=== PATIENT | male | born 1985 | race Two or more races ===

== ENCOUNTER → 2020-04-09 12:59 | Outpatient (BNVA) | payer OTHER, SELFPAY | PROVIDERS: PCP Internal Medicine; Visit Provider Internal Medicine Endocrinology, Diabetes & Metabolism | DX: Z13.89 Encounter for screening for other disorder (principal) | CPT/HCPCS: Q3014 ==

== ENCOUNTER 2020-04-21 11:15 | Outpatient (REF) | payer OTHER, SELFPAY ==
[2020-04-21 12:42] LABS: Free T4 (Free Thyroxine) 0.92 ng/dL (0.71-1.85); Thyroid Stimulating Hormone 13.54 uIU/mL (0.32-4.0); Vitamin D 25-OH Total 33.9 ng/mL (>30)
== END 2020-04-21 11:16 | disposition home or self-care (01) ==
LOC: HO.LAB 11:15
PROVIDERS: PCP Internal Medicine; Visit Provider Internal Medicine Endocrinology, Diabetes & Metabolism
DX: E89.0 Postprocedural hypothyroidism (principal); E55.9 Vitamin D deficiency, unspecified
CPT/HCPCS: 36415; 82306; 84439; 84443

== ENCOUNTER 2021-04-20 14:00 | Outpatient (REF) | payer OTHER, SELFPAY ==
[2021-04-20 14:11] LABS: MANUAL DIFF FLAG NO
[2021-04-20 14:17] LABS: Basophils Percent Auto 0.5 % (0-2); Eosinophils Absolute Auto 0.5 X10*3/uL (0.0-0.4); Eosinophils Percent Auto 7.8 % (0-4); Hematocrit 44.9 % (42.0-52.0); Hemoglobin 15.3 g/dl (14.0-18.0); Imm Gran Abs Auto 0.01 X10*3/uL (0.00-0.03); Imm Gran Pct Auto 0.2 % (0.0-0.4); Lymphocytes Absolute Auto 1.6 X10*3/uL (1.2-4.9); Lymphocytes Percent Auto 26.6 % (20-40); Mean Corpuscular HGB Conc 34.1 g/dl (31.0-36.0); Mean Corpuscular Hemoglobin 30.8 pg (27.0-33.0); Mean Corpuscular Volume 90.3 fL (80.0-98.0); Mean Platelet Volume 9.1 fL (9.4-12.4); Monocytes Absolute Auto 0.3 X10*3/uL (0.1-1.2); Monocytes Percent Auto 4.6 % (2-11); Neutrophils Absolute Auto 3.6 x10*3/uL (2.0-8.3); Neutrophils Percent Auto 60.3 % (45-73); Platelet Count 268 X10*3/uL (160-400); Red Blood Count 4.97 X10*6/uL (4.60-5.80); Red Cell Distribution Width 13.9 % (11.0-16.0); White Blood Count 5.9 X10*3/uL (4.8-10.8)
[2021-04-20 14:50] LABS: Alanine Aminotransferase 16 U/L (0-40); Alkaline Phosphatase 84 U/L (39-117); Anion Gap 9 (12-20); Aspartate Amino Transferase 14 U/L (5-37); Bilirubin Total 0.5 mg/dL (0.0-1.0); Blood Urea Nitrogen 10 mg/dL (9-16); Calcium 8.9 mg/dL (8.4-10.2); Carbon Dioxide 30 mmol/L (22-29); Chloride 106 mmol/L (96-108); Cholesterol 289 mg/dL; Estimated Glomerular Filt Rate > 60; Glucose Fasting 92 mg/dL (60-99); HDL Cholesterol 30 mg/dL; LDL Cholesterol Calculated 221 mg/dl; Potassium 4.1 mmol/L (3.3-5.1); Sodium 141 mmol/L (135-145); Total Protein 6.3 g/dL (6.5-8.0); Triglycerides 194 mg/dL
[2021-04-20 15:01] LABS: Free T4 (Free Thyroxine) 0.84 ng/dL (0.71-1.85); Thyroid Stimulating Hormone 8.74 uIU/mL (0.32-4.0)
== END 2021-04-20 14:01 | disposition home or self-care (01) ==
LOC: HO.LAB 14:00
PROVIDERS: Absent Provider Internal Medicine; PCP Internal Medicine; Visit Provider Internal Medicine Endocrinology, Diabetes & Metabolism
DX: Z00.00 Encounter for general adult medical examination without abnormal findings (principal); Z13.0 Encounter for screening for diseases of the blood and blood-forming organs and certain disorders involving the immune mechanism; E89.0 Postprocedural hypothyroidism
CPT/HCPCS: 36415; 80053; 80061; 84439; 84443; 85025

== ENCOUNTER → 2021-04-27 13:54 | Outpatient (BNVA) | payer OTHER, SELFPAY | PROVIDERS: PCP Internal Medicine; Visit Provider Internal Medicine Endocrinology, Diabetes & Metabolism | DX: E89.0 Postprocedural hypothyroidism (principal) | CPT/HCPCS: 99212 ==

== ENCOUNTER 2021-06-29 08:03 | Emergency (ER) | payer OTHER, SELFPAY ==
--- NOTE | ~2021-06-29 | CT_ITS ---
EXAMINATION: CT ABDOMEN AND PELVIS WITHOUT CONTRAST CLINICAL INFORMATION: Right upper quadrant and right lower quadrant and right CVAT pain with nausea and vomiting. COMPARISON: None TECHNIQUE: Multidetector volumetric imaging was performed from the superior aspect of the liver through the pubic symphysis. Sagittal and coronal reformatted images were obtained on the technologist's workstation. This CT examination was performed using dose optimization techniques as appropriate, variously including the following: *Automated exposure control *Adjustment of mA and/or kV according to patient size (this includes techniques or standardized protocols for targeted exams where dose is matched to indication/reason for exam; i.e. extremities or head) *Use of iterative reconstruction technique DLP: 343 mGy-cm FINDINGS: LUNG BASES: The visualized lung bases are unremarkable. LIVER, GALLBLADDER, AND BILIARY TREE: The liver is normal in size, shape, and attenuation. There is a 2.6 cm cyst seen at the dome of the liver. No focal solid hepatic lesion or biliary ductal dilatation is present. The gallbladder is unremarkable with no evidence of radiopaque gallstones, gallbladder wall thickening, or obvious pericholecystic inflammatory changes. PANCREAS: Unremarkable. No peripancreatic inflammatory change. SPLEEN: Unremarkable. ADRENAL GLANDS: Right adrenal gland appears unremarkable. The left adrenal gland is noted to have a lipid rich 1.2 cm nodule. KIDNEYS AND URETERS: The left kidney is normal in size, shape, and attenuation. No hydronephrosis, hydroureter, or calculi seen. No perinephric stranding. There is mild fullness to the right upper collecting system. Within the distal third of the right ureter there is a 4 mm partially obstructing calculus. There is columnization of the right ureter down to the calculus. BLADDER: Unremarkable. GASTROINTESTINAL TRACT: No dilated loops of large or small bowel are evident. A ventriculoperitoneal shunt is seen in place with small amount of free fluid within the pelvis. No free air is identified. The appendix appears unremarkable. No pericolonic inflammatory change. ABDOMINAL WALL: No significant hernia is appreciated. Ventriculoperitoneal shunt in place. LYMPH NODES: Normal. VASCULAR: Unremarkable. PELVIC VISCERA: Unremarkable. OSSEOUS STRUCTURES: Unremarkable. CT/CT abdomen pelvis wo con IMPRESSION: Partially occluding 4 mm distal right ureteral calculus with mild right hydronephrosis. 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 Hepatic cyst. Fleischner guidelines were followed.
[2021-06-29 08:15] VITALS: BP 148/91; PULSE 94; RESP 18; TEMP 36.8; O2SAT 99; BMI 24.5
[2021-06-29 08:27] LABS: MANUAL DIFF FLAG NO
[2021-06-29 08:30] LABS: Basophils Percent Auto 0.5 % (0-2); Eosinophils Percent Auto 13.1 % (0-4); Hematocrit 43.3 % (42.0-52.0); Hemoglobin 15.2 g/dl (14.0-18.0); Imm Gran Abs Auto 0.02 X10*3/uL (0.00-0.03); Imm Gran Pct Auto 0.3 % (0.0-0.4); Lymphocytes Absolute Auto 2.5 X10*3/uL (1.2-4.9); Lymphocytes Percent Auto 33.1 % (20-40); Mean Corpuscular HGB Conc 35.1 g/dl (31.0-36.0); Mean Corpuscular Hemoglobin 30.4 pg (27.0-33.0); Mean Corpuscular Volume 86.6 fL (80.0-98.0); Mean Platelet Volume 9.8 fL (9.4-12.4); Monocytes Absolute Auto 0.4 X10*3/uL (0.1-1.2); Monocytes Percent Auto 5.8 % (2-11); Neutrophils Absolute Auto 3.5 x10*3/uL (2.0-8.3); Neutrophils Percent Auto 47.2 % (45-73); Platelet Count 320 X10*3/uL (160-400); Red Cell Distribution Width 12.1 % (11.0-16.0); White Blood Count 7.5 X10*3/uL (4.8-10.8)
[2021-06-29 08:50] LABS: Alanine Aminotransferase 28 U/L (0-40); Albumin Level 4.2 g/dL (3.5-5.0); Alkaline Phosphatase 75 U/L (39-117); Anion Gap 14 (12-20); Aspartate Amino Transferase 17 U/L (5-37); Bilirubin Total 0.6 mg/dL (0.0-1.0); Blood Urea Nitrogen 7 mg/dL (9-16); Calcium 9.4 mg/dL (8.4-10.2); Carbon Dioxide 23 mmol/L (22-29); Chloride 108 mmol/L (96-108); Creatinine Clr Calc Pharmacy 79.5; Estimated Glomerular Filt Rate > 60; Glucose Random 125 mg/dL (60-115); Lipase 43 U/L (8-78); Potassium 3.9 mmol/L (3.3-5.1); Sodium 141 mmol/L (135-145); Total Protein 6.6 g/dL (6.5-8.0)
--- NOTE | 2021-06-29 09:35 | ED.ABDPAIN ---
HPI - Abdominal Pain General Chief Complaint: Abdominal Pain Stated Complaint: stomach pain Time Seen by Provider: 06/29/21 09:30 Source: patient Mode of arrival: ambulatory History of Present Illness HPI narrative: 36-year-old male with a past medical history of brain tumor s/p excision, total thyroidectomy, vitamin-D deficiency, presenting to the ED complaining of right lower quadrant pain, nausea, vomiting, diarrhea since yesterday. Admits pain initially started on left side then migrated to the right. Denies fever, chills, dysuria, hematuria, frequency, suspicious food intake MD elicited complaint: abdominal pain Onset (ago): day(s) Related Data Previous Rx's Medication Instructions Recorded cholecalciferol (vitamin D3) 25 25 mcg PO DAILY 30 Days #30 cap 04/19/21 mcg (1,000 unit) capsule Levoxyl 125 mcg tablet 125 mcg PO DAILY 30 Days #30 tab NS 04/22/21 (levothyroxine) ketorolac 10 mg tablet 10 mg PO TID PRN 5 Days #15 tab 06/29/21 tamsulosin 0.4 mg capsule (Flomax) 0.4 mg PO DAILY #14 cap 06/29/21 Allergies Allergy/AdvReac Type Severity Reaction Status Date / Time No Known Allergies Allergy Verified 06/03/21 14:39 Review of Systems Review of Systems Constitutional: No Fever, No Chills, No Fatigue, No Malaise ENT/Mouth: No Hearing loss, No Ear Pain, No Nasal Congestion, No sore throat, No Rhinorrhea, No Swallowing Difficulty Eyes: No Eye Pain, No Swelling, No Redness, No Vision Changes Cardiovascular: No Chest Pain, No SOB, No Edema, No Palpitations Respiratory: No Cough, No Sputum, No Dyspnea Gastrointestinal: + Nausea, + Vomiting, + Diarrhea, No Constipation, + Abdominal pain Genitourinary: No Dysuria, No Urinary Frequency, No Hematuria, No Urinary Incontinence/retention, No Urgency, + Flank Pain Musculoskeletal: No joint pain, No Myalgias, No Joint Swelling Skin: No Skin Lesions, No rash Neuro: No Weakness, No Dizziness, No Headache Yes all other systems are reviewed and are negative PMFSH Past Medical History Attestation statement: The following information was validated with the patient. Medical History History of brain tumor Post-surgical hypothyroidism Vitamin D deficiency Surgical History Hx of excision of tumor of brain meninges Hx of total thyroidectomy Family History Family History Father No problems noted. Mother No problems noted. Maternal Grandmother Diabetes mellitus Social History Social History Housing: Apartment Alcohol intake: current Alcohol intake frequency: does not drink Patient Tobacco Use Status: Former Tobacco user Quit Date: Over 5 years ago Cigarette Packs Per Day: 4 Years Smoked: 4 e-Cigarette/Vaping Use: Never Used Second Hand Smoke Exposure: No Use of substances other than those prescribed or required for medical reasons: No Advance Directives: No Advance Directives Information Provided: No service: No Current occupational status: unemployed Current occupational exposures/hazards: No Cognitive needs: No Hearing needs: No Vision needs: Yes Physical Exam ED Vital Signs: Vital Signs - 24 hr 06/29/21 08:15 06/29/21 10:03 06/29/21 14:19 Temperature 98.2 F Pulse Rate 94 87 68 Respiratory Rate 18 20 16 Blood Pressure 148/91 H 127/95 H 111/74 Pulse Oximetry 99 100 BMI result Body Mass Index 24.5 Const General: cooperative, healthy appearing and no acute distress Orientation/consciousness: patient oriented x3 Limitations: no limitations HENMT Head: Yes normal to inspection and Yes atraumatic Ears: hearing grossly normal bilaterally General nose exam: Normal external nose present Face and sinus: Yes normal facial exam Eyes General: appearance normal, both eyes and all related structures EOM: EOMs intact bilaterally Neck Neck: Yes normal visual inspection and Yes no meningeal signs Resp Effort & Inspection: normal respiratory effort and no respiratory distress Auscultation: clear to auscultation bilaterally, no rales, no rhonchi and no wheezes Cardio Rate: regular rate Heart sounds: S1 normal heart sound present and S2 normal heart sound present GI Inspection: Yes normal to inspection Palpation (GI): Soft to palpation, Tenderness to palpation present (GI) in the RLQ and in the RUQ, no guarding and not rigid General: Yes CVA tenderness on the right Back/Spine/Pelvis Back: CVA tenderness Skin Rashes: no rashes Wounds: no wounds Neuro General: patient oriented x3, tone normal and no meningeal signs Gait exam (Neuro): Normal gait present Extrem General: Yes normal to inspection Course Course Course Narrative: -no leukocytosis. Labs otherwise unremarkable CT abdomen pelvis wo con IMPRESSION: Partially occluding 4 mm distal right ureteral calculus with mild right hydronephrosis. ? 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 ? Hepatic cyst. ? Fleischner guidelines were followed. >1233--on re-evaluation patient reports continued pain. UA pending. Will consult Urology -urology recommends hydration and p.o. challenge > patient has been tolerating p.o. in the ED with out nausea or vomiting. UA with RBC/not infected. Results discussed with patient including worrisome signs and symptoms and strict return precautions and needing close follow-up with Urology. Verbalized understanding and feel safe for discharge home MDM - Abdominal Pain MDM Narrative Medical decision making narrative: 36-year-old male with a past medical history of brain tumor s/p excision, total thyroidectomy, vitamin-D deficiency, presenting to the ED complaining of right lower quadrant pain, nausea, vomiting, diarrhea since yesterday. On exam vital signs stable, NAD, nontoxic appearance, abdomen soft with RUQ/RLQ and right CVA tenderness, no rebound or guarding. Concern for cholecystitis/lithiasis vs renal stones/pyelo vs appendicitis. Lower concern for diverticulitis. Plan: Labs, UA, CT AP, IVF, antiemetic, re-evaluate Differential Diagnosis Differential diagnosis: Likely abdominal pain, acute appendicitis, constipation, diverticulitis, gastroenteritis, gastritis and pancreatitis Medical Records Attestation: I reviewed the patient's medical records. Lab Data Attestation: I reviewed the patient's lab results. Result diagrams: 06/29/21 08:23 06/29/21 08:23 Labs: Lab Results 06/29/21 06/29/21 06/29/21 Range/Units 08:23 08:23 14:15 WBC 7.5 (4.8-10.8) X10*3/uL RBC 5.00 (4.60-5.80) X10*6/uL Hgb 15.2 (14.0-18.0) g/dl Hct 43.3 (42.0-52.0) % MCV 86.6 (80.0-98.0) fL MCH 30.4 (27.0-33.0) pg MCHC 35.1 (31.0-36.0) g/dl RDW 12.1 (11.0-16.0) % Plt Count 320 (160-400) X10*3/uL MPV 9.8 (9.4-12.4) fL Immature Gran % (Auto) 0.3 (0.0-0.4) % Neut % (Auto) 47.2 (45-73) % Lymph % (Auto) 33.1 (20-40) % [place] % (Auto) 5.8 (2-11) % Eos % (Auto) 13.1 H (0-4) % Baso % (Auto) 0.5 (0-2) % Lymph # (Auto) 2.5 (1.2-4.9) X10*3/uL [place] # (Auto) 0.4 (0.1-1.2) X10*3/uL Eos # (Auto) 1.0 H (0.0-0.4) X10*3/uL Baso # (Auto) 0.0 (0.0-0.2) X10*3/uL Abs Immat Gran (auto) 0.02 (0.00-0.03) X10*3/uL Absolute Neuts (auto) 3.5 (2.0-8.3) x10*3/uL Absolute Nucleated RBC 0.000 (0.0-0.012) X10*3/uL Nucleated RBC % (auto) 0.0 (0.0-0.2) /100WBC Sodium 141 (135-145) mmol/L Potassium 3.9 (3.3-5.1) mmol/L Chloride 108 (96-108) mmol/L Carbon Dioxide 23 (22-29) mmol/L Anion Gap 14 (12-20) BUN 7 L (9-16) mg/dL Creatinine 0.94 (0.5-1.4) mg/dL Estim Creat Clear Calc 79.5 Estimated GFR > 60 Random Glucose 125 H (60-115) mg/dL Calcium 9.4 (8.4-10.2) mg/dL Magnesium 1.9 (1.6-2.6) mg/dL Total Bilirubin 0.6 (0.0-1.0) mg/dL AST 17 (5-37) U/L ALT 28 (0-40) U/L Alkaline Phosphatase 75 (39-117) U/L Total Protein 6.6 (6.5-8.0) g/dL Albumin 4.2 (3.5-5.0) g/dL Lipase 43 (8-78) U/L Urine Color STRAW Urine Appearance HAZY Urine pH 7.0 (5.0-8.0) Ur Specific [place] <= 1.005 (1.005-1.025) Urine Protein NEG (NEG-TRACE) MG/DL Urine Glucose (UA) NEG (NEG) MG/DL Urine Ketones NEG (NEG) MG/DL Urine Blood 3+ H (NEG) Urine Nitrite NEG (NEG) Ur Leukocyte Esterase NEG (NEG) Urine RBC 10-14 H (0) /HPF Urine WBC 0 (0-4) /HPF Ur Squamous Epith Cells NONE /LPF Ur Renal Epithelial Cell TRACE /LPF Urine Bacteria NONE /LPF Discharge Plan Discharge Clinical Impression: Right ureteral stone Patient Disposition: Home, Self-Care Instructions: Ureteral Stones (ED) Additional Instructions: Your kidney stone that is partially obstructing in your right ureter. It is important that you stay hydrated at home, drink plenty of fluids. Toradol is a anti-inflammatory pain medication, take with food. Flomax will help dilate the ureter and help pass the stone. You need to follow-up with Urology. If symptoms persist or worsen, constant worsening abdominal pain, persistent nausea/vomiting, you are unable to urinate or develops fever please return to the ED Prescriptions: New ketorolac 10 mg tablet 10 mg PO TID PRN (Reason: pain) 5 Days Qty: 15 0RF tamsulosin [Flomax] 0.4 mg capsule 0.4 mg PO DAILY Qty: 14 0RF No Action levothyroxine [Levoxyl] 125 mcg tablet 125 mcg PO DAILY 30 Days Qty: 30 5RF cholecalciferol (vitamin D3) 25 mcg (1,000 unit) capsule 25 mcg PO DAILY 30 Days Qty: 30 12RF Referrals: Anjel Cordova MD [Physician] - 1 week
[2021-06-29] MEDS: Ketorolac Tromethamine 15 MG/ML VIAL IVPUSH ×2 (10:01→13:12)
[2021-06-29] MEDS: 0.9 % Sodium Chloride 1,000 ML 999 ML IV ×2 (10:01→13:28)
[2021-06-29 10:02] LABS: Magnesium 1.9 mg/dL (1.6-2.6)
[2021-06-29] MEDS: ondansetron HCL 4 MG/2 ML VIAL IVPUSH (10:02)
[2021-06-29 10:03] VITALS: BP 127/95; PULSE 87; RESP 20
--- NOTE | 2021-06-29 10:04 | PC.NURSE ---
Pt c/o right sided abd pain x 3 days with vomiting. Pt grimacing and restless on stretcher. IV established and medicated as charted. Skin pale, warm and dry. Awaits CT scan
[2021-06-29] MEDS: Tamsulosin HCL 0.4 MG CAPSULE PO (13:13)
[2021-06-29 14:19] VITALS: BP 111/74; PULSE 68; RESP 16; O2SAT 100
[2021-06-29 14:36] LABS: Appearance Urine HAZY; Color Urine STRAW; Glucose Urine UA NEG (NEG); Leukocyte Esterase Urine NEG (NEG); Nitrite Urine NEG (NEG); Specific Gravity - Urine <= 1.005 (1.005-1.025); UACC Culture Trigger NO; Urine Blood 3+ (NEG); Urine Ketones NEG (NEG); Urine Protein NEG (NEG-TRACE)
[2021-06-29 14:43] LABS: Renal Epithelial Cells Urine TRACE /LPF
[2021-06-29 14:44] LABS: WBC Urine 0 /HPF (0-4)
== END 2021-06-29 15:03 | disposition home or self-care (01) ==
PROVIDERS: Physician Assistant; Emergency Provider Emergency Medicine; PCP Internal Medicine
DX: N13.2 Hydronephrosis with renal and ureteral calculous obstruction (principal)
CPT/HCPCS: 36415; 74176; 80053; 81001; 83690; 83735; 85025; 96361; 96374; 96375; 96376; 99284; J1885; J2405

== ENCOUNTER 2021-08-17 14:33 | Outpatient (REF) | payer OTHER, SELFPAY ==
[2021-08-17 15:20] LABS: Cholesterol 259 mg/dL; HDL Cholesterol 39 mg/dL; LDL Cholesterol Calculated 169 mg/dl; Triglycerides 255 mg/dL
[2021-08-17 17:51] LABS: Thyroid Stimulating Hormone 0.03 uIU/mL (0.32-4.0)
== END 2021-08-17 14:34 | disposition home or self-care (01) ==
LOC: HO.LAB 14:33
PROVIDERS: PCP Internal Medicine; Visit Provider Internal Medicine
DX: E03.9 Hypothyroidism, unspecified (principal); E78.5 Hyperlipidemia, unspecified
CPT/HCPCS: 36415; 80061; 84443

== ENCOUNTER 2021-10-21 14:47 | Outpatient (REF) | payer OTHER, SELFPAY ==
[2021-10-21 16:22] LABS: Free T4 (Free Thyroxine) 1.62 ng/dL (0.71-1.85); Thyroid Stimulating Hormone 0.14 uIU/mL (0.32-4.0)
== END 2021-10-21 14:48 | disposition home or self-care (01) ==
LOC: HO.LAB 14:47
PROVIDERS: Visit Provider Internal Medicine Endocrinology, Diabetes & Metabolism
DX: E89.0 Postprocedural hypothyroidism (principal)
CPT/HCPCS: 36415; 84439; 84443

== ENCOUNTER → 2021-10-27 10:22 | Outpatient (BNVA) | payer OTHER, SELFPAY | PROVIDERS: PCP Internal Medicine; Visit Provider Internal Medicine Endocrinology, Diabetes & Metabolism | DX: E89.0 Postprocedural hypothyroidism (principal) | CPT/HCPCS: 99212 ==

== ENCOUNTER 2021-11-15 14:11 | Outpatient (REF) | payer OTHER, SELFPAY ==
--- NOTE | ~2021-11-15 | XR_ITS ---
EXAMINATION: XR LUMBOSACRAL SPINE CLINICAL INFORMATION: Low back pain COMPARISON: None TECHNIQUE: Three views of the lumbosacral spine. FINDINGS: 5 nonrib-bearing lumbar vertebral bodies. Sagittal alignment is anatomic. Vertebral body heights are maintained. No acute fracture is seen. There is mild endplate spurring anteriorly at T12-L1, and anterior spurring at L2 vertebral body. The disc spaces are maintained. SI joints are intact. Visualized pelvic bones appear intact. Nonobstructive bowel gas pattern. WAIST PRESSER shunt, partially imaged, with the tip apparently in the pelvis. Previously seen right ureteral calculus is not evident on the radiograph. XR/XR lumbar spine 2-3V IMPRESSION: No radiographic evidence of acute fracture or malalignment. Mild degenerative spurring as detailed above. Additional findings as above.
== END 2021-11-15 14:12 | disposition home or self-care (01) ==
LOC: HO.XRAY 14:11
PROVIDERS: PCP Internal Medicine; Visit Provider Internal Medicine
DX: M54.50 Low back pain, unspecified (principal)
CPT/HCPCS: 72100

== ENCOUNTER 2022-03-28 13:17 | Outpatient (REF) | payer OTHER, SELFPAY ==
[2022-03-28 15:28] LABS: Free T4 (Free Thyroxine) 1.32 ng/dL (0.71-1.85); Thyroid Stimulating Hormone 0.71 uIU/mL (0.32-4.0)
== END 2022-03-28 13:18 | disposition home or self-care (01) ==
LOC: HO.LAB 13:17
PROVIDERS: PCP Internal Medicine; Visit Provider Internal Medicine Endocrinology, Diabetes & Metabolism
DX: E89.0 Postprocedural hypothyroidism (principal)
CPT/HCPCS: 36415; 84439; 84443

== ENCOUNTER → 2022-03-29 13:45 | Outpatient (BNVA) | payer OTHER, SELFPAY | PROVIDERS: PCP Internal Medicine; Visit Provider Internal Medicine Endocrinology, Diabetes & Metabolism | DX: E89.0 Postprocedural hypothyroidism (principal) | CPT/HCPCS: 99212 ==

== ENCOUNTER 2022-05-05 13:54 | Outpatient (REF) | payer OTHER, SELFPAY ==
[2022-05-05 14:10] LABS: MANUAL DIFF FLAG NO
[2022-05-05 14:47] LABS: Basophils Absolute Auto 0.1 X10*3/uL (0.0-0.2); Basophils Percent Auto 1.2 % (0-2); Eosinophils Absolute Auto 0.2 X10*3/uL (0.0-0.4); Eosinophils Percent Auto 2.7 % (0-4); Hematocrit 44.7 % (42.0-52.0); Hemoglobin 15.3 g/dl (14.0-18.0); Imm Gran Abs Auto 0.01 X10*3/uL (0.00-0.03); Imm Gran Pct Auto 0.2 % (0.0-0.4); Lymphocytes Absolute Auto 1.7 X10*3/uL (1.2-4.9); Lymphocytes Percent Auto 27.6 % (20-40); Mean Corpuscular HGB Conc 34.2 g/dl (31.0-36.0); Mean Corpuscular Hemoglobin 29.5 pg (27.0-33.0); Mean Corpuscular Volume 86.1 fL (80.0-98.0); Mean Platelet Volume 9.4 fL (9.4-12.4); Monocytes Absolute Auto 0.3 X10*3/uL (0.1-1.2); Neutrophils Absolute Auto 3.8 x10*3/uL (2.0-8.3); Neutrophils Percent Auto 63.3 % (45-73); Platelet Count 302 X10*3/uL (160-400); Red Blood Count 5.19 X10*6/uL (4.60-5.80); Red Cell Distribution Width 13.3 % (11.0-16.0)
[2022-05-05 16:26] LABS: Alanine Aminotransferase 12 U/L (0-40); Albumin Level 4.3 g/dL (3.5-5.0); Alkaline Phosphatase 82 U/L (39-117); Anion Gap 16 (12-20); Aspartate Amino Transferase 10 U/L (5-37); Bilirubin Total 0.6 mg/dL (0.0-1.0); Blood Urea Nitrogen 6 mg/dL (9-16); Calcium 9.5 mg/dL (8.4-10.2); Carbon Dioxide 26 mmol/L (22-29); Chloride 103 mmol/L (96-108); Cholesterol 287 mg/dL; Estimated Glomerular Filt Rate > 60; Glucose Fasting 71 mg/dL (60-99); HDL Cholesterol 40 mg/dL; LDL Cholesterol Calculated 206 mg/dl; Potassium 4.7 mmol/L (3.3-5.1); Sodium 140 mmol/L (135-145); Total Protein 6.7 g/dL (6.5-8.0); Triglycerides 207 mg/dL
[2022-05-05 16:45] LABS: Thyroid Stimulating Hormone 4.57 uIU/mL (0.32-4.0)
== END 2022-05-05 13:55 | disposition home or self-care (01) ==
LOC: HO.LAB 13:54
PROVIDERS: PCP Internal Medicine; Visit Provider Internal Medicine
DX: D64.9 Anemia, unspecified (principal); E03.9 Hypothyroidism, unspecified; E78.5 Hyperlipidemia, unspecified; N28.9 Disorder of kidney and ureter, unspecified
CPT/HCPCS: 36415; 80053; 80061; 84443; 85025

== ENCOUNTER 2022-10-04 14:05 | Emergency (ER) | payer OTHER, SELFPAY ==
--- NOTE | ~2022-10-04 | CT_ITS ---
EXAMINATION: CT HEAD WITHOUT CONTRAST CLINICAL INFORMATION: Weakness. COMPARISON: MRI of the brain dated 09/15/[address] scan of the brain dated 12/17/2009. TECHNIQUE: Contiguous axial imaging was performed from the skull base to vertex without intravenous administration of contrast. Coronal and sagittal reformatted images were obtained. This CT examination was performed using dose optimization techniques as appropriate, variously including the following: *Automated exposure control *Adjustment of mA and/or kV according to patient size (this includes techniques or standardized protocols for targeted exams where dose is matched to indication/reason for exam; i.e. extremities or head) *Use of iterative reconstruction technique DLP: 504 mGy-cm FINDINGS: The cortical sulci are normal. The lateral ventricles are symmetrical. Right parietal approach catheter is seen in place terminating overlying the left lateral ventricle without significant change. The third and fourth ventricles are in their normal midline position. The basilar and prepontine cisterns are unremarkable. There is no acute intra or extracerebral abnormality. There is no mass effect or midline shift. Sections through the bony calvarium are unremarkable. The paranasal sinuses are clear. The bony orbits and orbital contents are unremarkable. CT/CT head/brain wo IV con IMPRESSION: No acute intracranial pathology.
--- NOTE | 2022-10-04 14:08 | ED_ITS ---
HPI - General Adult General Chief complaint: General Medical Stated complaint: whole body hurts Time Seen by Provider: 10/04/22 14:27 Source: patient and family Mode of arrival: ambulatory Limitations: no limitations History of Present Illness HPI narrative: patient with whole body numbness and some headache. Patient with a shunt since 7 years old. patient does not have a neurologist. Initially patient had num bness on the right now its the entire body. No weakness. Onset (ago): day(s) Severity: mild Related Data Previous Rx's Medication Instructions Recorded cholecalciferol (vitamin D3) 25 25 mcg PO DAILY 30 days #30 caps 04/19/21 mcg (1,000 unit) capsule naproxen 500 mg tablet (Naprosyn) 500 mg PO BID PRN pain #60 tabs 11/15/21 Levoxyl 112 mcg tablet 112 mcg PO DAILY #30 tabs 08/28/22 (levothyroxine) Allergies Allergy/AdvReac Type Severity Reaction Status Date / Time No Known Allergies Allergy Verified 10/04/22 14:08 Review of Systems Review of Systems: Yes all other systems are reviewed and are negative COUNT INCLUDES THE [facility] Past Medical History Medical History History of brain tumor Post-surgical hypothyroidism Vitamin D deficiency Surgical History Hx of excision of tumor of brain meninges Hx of total thyroidectomy Family History Family History Father No problems noted. Mother No problems noted. Maternal Grandmother Diabetes mellitus Social History Social History Housing: Apartment Alcohol intake: never Patient Tobacco Use Status: Former Tobacco user Quit Date: Over 5 years ago Cigarette Packs Per Day: 4 Years Smoked: 4 Smoked in Last 30 Days: Yes e-Cigarette/Vaping Use: Never Used Second Hand Smoke Exposure: No Use of substances other than those prescribed or required for medical reasons: Yes Substance Use Type: Marijuana Substance Use Frequency Other:: Hasn't used in a month Advance Directives: No service: No Current occupational status: unemployed Current occupational exposures/hazards: No Cognitive needs: No Hearing needs: No Vision needs: Yes Physical Exam ED Vital Signs: Vital Signs - 24 hr 10/04/22 14:09 10/04/22 16:27 Temperature 98 F Pulse Rate 76 63 Respiratory Rate 18 14 Blood Pressure 131/95 H 114/83 Pulse Oximetry 97 100 Oxygen Delivery Method Room Air BMI result Body Mass Index 23.5 Const General: healthy appearing Nutritional Appearance: average body habitus Orientation/consciousness: oriented to person and patient oriented x3 Limitations: no limitations HENMT Head: Yes normal to inspection Ears: external ears normal General nose exam: Normal external nose present Mouth: Normal oral and palatal mucosa present and oropharynx normal Throat: Yes posterior oropharynx normal Eyes General: appearance normal, both eyes and all related structures Neck Neck: Yes normal visual inspection Chest Chest palpation & inspection: normal inspection of the chest Resp Auscultation: clear to auscultation bilaterally Cardio Jugular venous distension: no JVD Rate: regular rate Rhythm: regular rhythm Heart sounds: S1 normal heart sound present and S2 normal heart sound present GI Inspection: Yes normal to inspection Palpation (GI): Soft to palpation, nontender and No hepatosplenomegaly present Auscultation: normal bowel sounds General: Yes no CVA tenderness Back/Spine/Pelvis Back: no CVA tenderness Skin General skin exam: no rashes or lesions noted Neuro General: oriented to person and patient oriented x3 Cranial nerves: Yes CN's II-XII intact bilaterally Motor exam (neuro): 5/5 motor strength present throughout Extrem General: Yes normal to inspection Psych Appearance: grossly normal Course Course Course Narrative: RME- 37 year old male with past medical history significant for previous brain tumor resection, peritoneal shunt, hypothyroidism presents for evaluation of numbness to my entire body. Symptoms started 3 or 4 days ago. He also reports generalized weakness. Patient reports double vision. NIH stroke score of 0, but does have some bilateral nystagmus on exam. Plan for labs, ct brain Reevaluation(s) Reevaluation #1: NIH stroke scale 0 Time: 16:09 Reevaluation #2: I assumed care at approximately 4:00 a.m. this afternoon. I reviewed patient's laboratory analysis and CT scan. There are no acute abnormalities. Patient has generalized myalgias. At this point, there is no evidence of a severe metabolic or surgical acute issue. Patient will be discharged at this time Time: 17:59 Medical Decision Making Differential Diagnosis Differential Diagnoses: The differential diagnosis associated with the presentation includes (hydrocephalus, brain tumor, stroke paraesthesias) Admission/Observation Consideration of admission/observation: Escalation of care including admission/observation considered (upon arrival patient was considered for admission) Lab Data MDM Lab Attestation statement: I reviewed the patient's lab results. (CBC normal, chemistry pending) 10/04/22 14:57 10/04/22 14:57 Labs: Lab Results 10/04/22 10/04/22 10/04/22 Range/Units 14:57 14:57 14:57 WBC 5.3 (4.8-10.8) X10*3/uL RBC 5.00 (4.60-5.80) X10*6/uL Hgb 15.4 (14.0-18.0) g/dl Hct 43.6 (42.0-52.0) % MCV 87.2 (80.0-98.0) fL MCH 30.8 (27.0-33.0) pg MCHC 35.3 (31.0-36.0) g/dl RDW 13.8 (11.0-16.0) % Plt Count 268 (160-400) X10*3/uL MPV 9.8 (9.4-12.4) fL Immature Gran % (Auto) 0.2 (0.0-0.4) % Neut % (Auto) 64.7 (45-73) % Lymph % (Auto) 25.9 (20-40) % [place] % (Auto) 4.9 (2-11) % Eos % (Auto) 3.0 (0-4) % Baso % (Auto) 1.3 (0-2) % Lymph # (Auto) 1.4 (1.2-4.9) X10*3/uL [place] # (Auto) 0.3 (0.1-1.2) X10*3/uL Eos # (Auto) 0.2 (0.0-0.4) X10*3/uL Baso # (Auto) 0.1 (0.0-0.2) X10*3/uL Abs Immat Gran (auto) 0.01 (0.00-0.03) X10*3/uL Absolute Neuts (auto) 3.4 (2.0-8.3) x10*3/uL Absolute Nucleated RBC 0.000 (0.0-0.012) X10*3/uL Nucleated RBC % (auto) 0.0 (0.0-0.2) /100WBC PT 11.8 (11.1-13.3) SEC INR 1.0 (0.9-1.1) APTT 29.3 (26.0-36.4) SEC Sodium 137 (135-145) mmol/L Potassium 3.5 D (3.3-5.1) mmol/L Chloride 104 (96-108) mmol/L Carbon Dioxide 24 (22-29) mmol/L Anion Gap 13 (12-20) BUN 7 L (9-16) mg/dL Creatinine 0.86 (0.5-1.4) mg/dL Estim Creat Clear Calc 86.1 Estimated GFR > 60 Random Glucose 86 (60-115) mg/dL Calcium 9.1 (8.4-10.2) mg/dL Total Bilirubin 1.1 H (0.0-1.0) mg/dL AST 9 (5-37) U/L ALT 9 (0-40) U/L Alkaline Phosphatase 72 (39-117) U/L Troponin I High Sens (<3.5-35.0) ng/L Total Protein 6.6 (6.5-8.0) g/dL Albumin 4.1 (3.5-5.0) g/dL Lipase 22 (8-78) U/L Influenza Type A (PCR) (Negative) Influenza Type B (PCR) (Negative) RSV RNA Qual (PCR) (Negative) SARS-CoV-2 RNA (RT-PCR) (Negative) 10/04/22 10/04/22 Range/Units 14:57 14:57 WBC (4.8-10.8) X10*3/uL RBC (4.60-5.80) X10*6/uL Hgb (14.0-18.0) g/dl Hct (42.0-52.0) % MCV (80.0-98.0) fL MCH (27.0-33.0) pg MCHC (31.0-36.0) g/dl RDW (11.0-16.0) % Plt Count (160-400) X10*3/uL MPV (9.4-12.4) fL Immature Gran % (Auto) (0.0-0.4) % Neut % (Auto) (45-73) % Lymph % (Auto) (20-40) % [place] % (Auto) (2-11) % Eos % (Auto) (0-4) % Baso % (Auto) (0-2) % Lymph # (Auto) (1.2-4.9) X10*3/uL [place] # (Auto) (0.1-1.2) X10*3/uL Eos # (Auto) (0.0-0.4) X10*3/uL Baso # (Auto) (0.0-0.2) X10*3/uL Abs Immat Gran (auto) (0.00-0.03) X10*3/uL Absolute Neuts (auto) (2.0-8.3) x10*3/uL Absolute Nucleated RBC (0.0-0.012) X10*3/uL Nucleated RBC % (auto) (0.0-0.2) /100WBC PT (11.1-13.3) SEC INR (0.9-1.1) APTT (26.0-36.4) SEC Sodium (135-145) mmol/L Potassium (3.3-5.1) mmol/L Chloride (96-108) mmol/L Carbon Dioxide (22-29) mmol/L Anion Gap (12-20) BUN (9-16) mg/dL Creatinine (0.5-1.4) mg/dL Estim Creat Clear Calc Estimated GFR Random Glucose (60-115) mg/dL Calcium (8.4-10.2) mg/dL Total Bilirubin (0.0-1.0) mg/dL AST (5-37) U/L ALT (0-40) U/L Alkaline Phosphatase (39-117) U/L Troponin I High Sens < 2.7 (<3.5-35.0) ng/L Total Protein (6.5-8.0) g/dL Albumin (3.5-5.0) g/dL Lipase (8-78) U/L Influenza Type A (PCR) NEGATIVE (Negative) Influenza Type B (PCR) NEGATIVE (Negative) RSV RNA Qual (PCR) NEGATIVE (Negative) SARS-CoV-2 RNA (RT-PCR) NEGATIVE (Negative) Independent Interpretation I performed an independent interpretation of an: EKG (sinus [address] or twave changes) and CT Scan (Head CT: question of dilated 4th ventricle) Radiology Impression Discussion of test interpretation with radiology: I have reviewed the radiologist's reading. (Head CT read as nothing acute) Independent Historian Clinical information obtained from an independent historian. History obtained from or confirmed by: Parent (mother) External Record Review External record reviewed: Outpatient record Chronic Conditions Patient?s care impacted by: Other (hypothyroidism) Discharge Plan Discharge Clinical Impression: Arm paresthesia, left, Left leg paresthesias Patient Disposition: Still a Patient Prescriptions: No Action levothyroxine [Levoxyl] 112 mcg tablet 112 mcg PO DAILY Qty: 30 5RF naproxen [Naprosyn] 500 mg tablet 500 mg PO BID PRN (Reason: pain) Qty: 60 0RF cholecalciferol (vitamin D3) 25 mcg (1,000 unit) capsule 25 mcg PO DAILY 30 Days Qty: 30 12RF
[2022-10-04 14:09] VITALS: BP 131/95; PULSE 76; RESP 18; TEMP 36.6; O2SAT 97; BMI 23.5
--- NOTE | 2022-10-04 14:54 | ECG_ITS ---
Test Reason : Dizziness Blood Pressure : / mmHG Vent. Rate : 067 BPM Atrial Rate : 067 BPM P-R Int : 130 ms QRS Dur : 082 ms QT Int : 406 ms P-R-T Axes : 023 045 037 degrees QTc Int : 429 ms Normal sinus rhythm Normal ECG When compared with ECG of 19-OCT-2013 14:23, Questionable change in QRS axis Referred By: Yosef Vazquez Electronically Signed By:ERIN JANE
[2022-10-04 15:06] LABS: MANUAL DIFF FLAG NO
[2022-10-04 15:16] LABS: Basophils Absolute Auto 0.1 X10*3/uL (0.0-0.2); Basophils Percent Auto 1.3 % (0-2); Eosinophils Absolute Auto 0.2 X10*3/uL (0.0-0.4); Hematocrit 43.6 % (42.0-52.0); Hemoglobin 15.4 g/dl (14.0-18.0); Imm Gran Abs Auto 0.01 X10*3/uL (0.00-0.03); Imm Gran Pct Auto 0.2 % (0.0-0.4); Lymphocytes Absolute Auto 1.4 X10*3/uL (1.2-4.9); Lymphocytes Percent Auto 25.9 % (20-40); Mean Corpuscular HGB Conc 35.3 g/dl (31.0-36.0); Mean Corpuscular Hemoglobin 30.8 pg (27.0-33.0); Mean Corpuscular Volume 87.2 fL (80.0-98.0); Mean Platelet Volume 9.8 fL (9.4-12.4); Monocytes Absolute Auto 0.3 X10*3/uL (0.1-1.2); Monocytes Percent Auto 4.9 % (2-11); Neutrophils Absolute Auto 3.4 x10*3/uL (2.0-8.3); Neutrophils Percent Auto 64.7 % (45-73); Platelet Count 268 X10*3/uL (160-400); Red Cell Distribution Width 13.8 % (11.0-16.0); White Blood Count 5.3 X10*3/uL (4.8-10.8)
[2022-10-04 15:17] LABS: Prothrombin Time 11.8 SEC (11.1-13.3)
[2022-10-04 15:20] LABS: Partial Thromboplastin Time 29.3 SEC (26.0-36.4)
--- NOTE | 2022-10-04 15:28 | PC.NURSE ---
Patient presents with double vision and generalized numbness. Patient states that a few days ago the double vision started and at first he thought is was to do with his glasses but he he noted that even when he took the glasses off he was still having the double vision. Patient also noted a few days ago the he was feeling some numbness on the right side and the next day it went to the left and today its all over but somewhat worse on the left side. Patient is alert and oriented and able to move all extremities independently. Patient is speaking in full sentences and has clear speech.
[2022-10-04 15:38] LABS: Troponin-I High Sensitivity < 2.7 ng/L (<3.5-35.0)
[2022-10-04 15:49] LABS: Influenza A PCR NEGATIVE (Negative); Influenza B PCR NEGATIVE (Negative); Resp Syncy Virus RNA Qual PCR NEGATIVE (Negative); SARS COV2 PCR INHOUSE NEGATIVE (Negative)
[2022-10-04 16:27] VITALS: BP 114/83; PULSE 63; RESP 14; O2SAT 100
[2022-10-04 17:01] LABS: Alanine Aminotransferase 9 U/L (0-40); Albumin Level 4.1 g/dL (3.5-5.0); Alkaline Phosphatase 72 U/L (39-117); Anion Gap 13 (12-20); Aspartate Amino Transferase 9 U/L (5-37); Bilirubin Total 1.1 mg/dL (0.0-1.0); Blood Urea Nitrogen 7 mg/dL (9-16); Calcium 9.1 mg/dL (8.4-10.2); Carbon Dioxide 24 mmol/L (22-29); Chloride 104 mmol/L (96-108); Creatinine Clr Calc Pharmacy 86.1; Estimated Glomerular Filt Rate > 60; Glucose Random 86 mg/dL (60-115); Lipase 22 U/L (8-78); Potassium 3.5 mmol/L (3.3-5.1); Sodium 137 mmol/L (135-145); Total Protein 6.6 g/dL (6.5-8.0)
[2022-10-04 18:10] VITALS: BP 143/92; PULSE 84; RESP 13; O2SAT 100
== END 2022-10-04 18:10 | disposition still patient (30) ==
PROVIDERS: Physician Assistant; Emergency Provider Emergency Medicine; PCP Internal Medicine
DX: R20.2 Paresthesia of skin (principal); R42 Dizziness and giddiness; M79.10 Myalgia, unspecified site; R53.1 Weakness; Z20.822 Contact with and (suspected) exposure to COVID-19; Z20.828 Contact with and (suspected) exposure to other viral communicable diseases; Z87.891 Personal history of nicotine dependence; Z79.899 Other long term (current) drug therapy
CPT/HCPCS: 0241U; 36415; 70450; 80053; 83690; 84443; 84484; 85025; 85610; 85730; 93005; 99284

== ENCOUNTER 2022-10-18 09:45 | Outpatient (AMB) | payer OTHER, SELFPAY ==
--- NOTE | 2022-10-18 09:47 | MHC.PC.OV ---
Vital Signs 10/18/22 09:48 Height 5 ft 1 in Weight 131 lb BMI 24.7 BP 119/60 Blood Pressure Location Lt brachial Position Sitting Pulse 95 Pulse Source Pulse Oximeter Pulse Oximetry (%) 99 Oxygen Delivery Method Room Air Intake Visit Reasons: [facility] [place]-10/04 Mechanical Design Engineer Required: No Accompanied by: Mother Allergies No Known Allergies Allergy (Verified 10/18/22 09:48) Medication List - Last Reconciled 10/18/22 by Ranjith Luz MD cholecalciferol (vitamin D3) 25 mcg PO DAILY 30 days Levoxyl (levothyroxine) 112 mcg PO DAILY NS naproxen (Naprosyn) 500 mg PO BID PRN Tobacco use date assessed: 05/05/22 Dental Screening Dental Screen Date: 10/18/22 Did you have a dental visit in the last 12 months?: Yes Did you have a dental problem in the last 6 months where you did not have access to dental care?: No Was dental information given to patient?: Patient has dentist HPI [facility]-10/04 HPI Details had brain surgery 30 years ago with a shunt placed' over the past few months has had progressive arm and leg weakness, speech difficulty and decreased hearing in right ear; family says he is not thinking clearly PFS Medical History History of brain tumor Post-surgical hypothyroidism Vitamin D deficiency Surgical History Hx of excision of tumor of brain meninges Hx of total thyroidectomy Family History Father No problems noted. Mother No problems noted. Maternal Grandmother Diabetes mellitus Social History Housing: Apartment Alcohol intake: never Patient Tobacco Use Status: Former Tobacco user Quit Date: Over 5 years ago Cigarette Packs Per Day: 4 Years Smoked: 4 e-Cigarette/Vaping Use: Never Used Second Hand Smoke Exposure: No Substance Use Type: Marijuana service: No Current occupational status: unemployed Current occupational exposures/hazards: No Cognitive needs: No Hearing needs: No Vision needs: Yes Questionnaire PHQ-9 Over the last 2 weeks, how often have you been bothered by any of the following problems? 1. Little interest or pleasure in doing things: not at all 2. Feeling down, depressed, or hopeless: not at all 3. Trouble falling or staying asleep, or sleeping too much: not at all 4. Feeling tired or having little energy: not at all 5. Poor appetite or overeating: not at all 6. Feeling bad about yourself - or that you are a failure or have let yourself or your family down: not at all 7. Trouble concentrating on things, such as reading the newspaper or watching television: not at all 8. Moving or speaking so slowly that other people could have noticed. Or the opposite - being so fidgety or restless that you have been moving around a lot more than usual: not at all 9. Thoughts that you would be better off or of hurting yourself in some way: not at all Total score: 0 Depression Screening Interpretation: Negative 57131 - PHQ-9 Billing: Yes Source: Developed by Drs. Jim Valles, Rashida Laguerre, Oleg Dumont and colleagues, with an educational harriet from [employer]. Thrive Questionnaire Date Thrive assessed: 05/05/22 AUDIT C Alcohol Use Questionnaire (AUDIT-C) 1. How often do you have a drink containing alcohol?: Never Total Score: 0 Score Reviewed/Action Taken: Yes SUSAN-7 AMB Questionnaire SUSAN-7 Date SUSAN - 7 assessed: 05/05/22 Source: Developed by Drs. Jim Valles, Rashida Laguerre, Oleg Dumont and colleagues, with an educational harriet from [employer]. Review of Systems Const Denies chills, Denies fatigue, Denies headache(s) and Denies weight loss Eyes Denies change in vision, Denies diplopia and Denies eye pain ENT Denies vertigo, Denies dizziness, Denies headache(s) and Denies nasal discharge Card Denies chest pain, Denies rapid heart rate and Denies dyspnea on exertion Resp Denies chest congestion, Denies cough, Denies pain with cough and Denies dyspnea on exertion GI Denies abdominal pain, Denies hematochezia and Denies change in bowel habits Musc Denies myalgias, Denies arthralgias and Denies joint swelling Skin/Breast Denies lesions and Denies unusual bruising Neuro Denies vertigo, Denies dizziness, Denies headache(s) and Denies focal weakness Endo Denies fatigue Physical exam (Primary Care) Vital Signs: Last Vital Signs Pulse 95 10/18/22 09:48 BP 119/60 10/18/22 09:48 Pulse Ox 99 10/18/22 09:48 Oxygen Delivery Method Room Air 10/18/22 09:48 BMI result Body Mass Index 24.7 Tobacco/Smoking Status: Tobacco use Status Tobacco use date assessed 05/05/22 10/18/22 09:52 Patient Tobacco Use Status Former Tobacco user 10/18/22 09:52 e-Cigarette/Vaping Use Never Used 10/18/22 09:52 PHQ-9: PHQ-9 Score PHQ-9: Total score 0 10/18/22 09:53 Depression Screening Interpretation: Negative Thrive Assessment: Date of Thrive Assessment Date Thrive assessed 05/05/22 10/18/22 09:52 Const General: cooperative, healthy appearing and no acute distress Orientation/consciousness: oriented to person, oriented to place and oriented to time HENMT Head: Yes normal to inspection, Yes normocephalic and Yes atraumatic Mouth: Normal oral and palatal mucosa present and tongue normal Throat: Yes posterior oropharynx normal and Yes uvula midline Eyes General: appearance normal, both eyes and all related structures Neck Neck: Yes normal visual inspection, Yes full ROM and Yes no lymphadenopathy Thyroid: Thyroid normal Carotids: normal carotid upstroke Chest Chest palpation & inspection: normal inspection of the chest Resp Effort & Inspection: normal respiratory effort and able to speak in complete sentences Auscultation: clear to auscultation bilaterally Cardio Jugular venous distension: no JVD Palpation: normal PMI Rate: regular rate Rhythm: regular rhythm Heart sounds: S1 normal heart sound present and S2 normal heart sound present GI Inspection: Yes normal to inspection Palpation (GI): Soft to palpation and No hepatosplenomegaly present Auscultation: normal bowel sounds General: Yes no CVA tenderness Back/Spine/Pelvis Back: no CVA tenderness Skin General skin exam: no rashes or lesions noted Neuro General: oriented to person, oriented to place and oriented to time Extrem General: Yes normal to inspection and Yes full ROM Assessment and Plan Assessment & Plan (1) History of brain shunt: Code(s): Z98.2 - Presence of cerebrospinal fluid drainage device Plan: ref neuro Orders: Referrals Neurology Referral Z98.2 - Presence of cerebrospinal fluid drainage device Coding Level of Care Code Est Pt Level 3 (57063) Diagnoses History of brain shunt Z98.2
[2022-10-18 09:48] VITALS: BP 119/60; PULSE 95; O2SAT 99; BMI 24.7
== END 2022-10-18 10:10 | disposition home or self-care (01) ==
PROVIDERS: PCP Internal Medicine; Visit Provider Internal Medicine
DX: Z98.2 Presence of cerebrospinal fluid drainage device (principal)
CPT/HCPCS: 99213

== ENCOUNTER 2022-11-14 09:44 | Outpatient (REF) | payer OTHER, SELFPAY ==
--- NOTE | ~2022-11-14 | MR_ITS ---
MR CERVICAL SPINE WITHOUT CONTRAST CLINICAL INFORMATION: Multifactorial gait disorder. COMPARISON: None available. TECHNIQUE: MRI of the cervical spine was obtained using routine sequences without contrast. FINDINGS: Cervical alignment is maintained. The vertebral body heights are preserved. There is no bone marrow edema. There are no acute fractures. The craniocervical junction is unremarkable. The disc volumes are preserved. The cervical arterial flow voids are maintained. There are no cord signal changes. There are no significant extraspinal soft tissue findings. Encephalomalacia and gliosis within the cerebellum partially imaged. C2-C3: There is left greater then right facet arthropathy and uncovertebral joint spurring resulting in moderate left-sided foraminal encroachment. No central canal and no right foraminal stenosis. C3-C4: Slight annular disc bulge without central canal stenosis. No foraminal stenosis. C4-C5: Slight annular disc bulge. Bilateral facet arthropathy. No central canal stenosis and no foraminal stenosis. C5-C6: Uncovertebral joint spurring and facet arthropathy result in mild right-sided foraminal stenosis. No central canal and no left foraminal stenosis. C6-C7: Uncovertebral joint spurring and facet arthropathy result in mild bilateral foraminal encroachment. No central canal stenosis. C7-T1: Posterior disc contour is normal. There is no central canal stenosis and there is no foraminal stenosis. MR/MR cervical spine wo con IMPRESSION: - Multilevel cervical spondylosis. Multifactorial degenerative changes result in moderate left-sided foraminal stenosis at C2-C3 and mild foraminal encroachment at additional cervical levels as discussed above. No severe central canal stenosis within the cervical spine. - Encephalomalacia and gliosis within the cerebellum partially imaged with a history of known posterior fossa surgery.
== END 2022-11-14 09:45 | disposition home or self-care (01) ==
LOC: HO.MRI 09:44
PROVIDERS: PCP Internal Medicine; Visit Provider Psychiatry & Neurology Neurology
DX: R26.89 Other abnormalities of gait and mobility (principal)
CPT/HCPCS: 72141

== ENCOUNTER 2024-03-24 13:49 | Outpatient (AMB) | payer OTHER, SELFPAY ==
--- NOTE | 2024-03-24 13:54 | MHC.PC.OV ---
Vital Signs 03/24/24 13:55 Height 5 ft 1 in Weight 146 lb 2 oz BMI 27.6 BP 112/76 Blood Pressure Location Lt brachial Position Sitting Pulse 97 Pulse Source Pulse Oximeter Temp 96.9 F Temp Source Skin Pulse Oximetry (%) 97 Oxygen Delivery Method Room Air Intake Visit Reasons: annual exam Intake Note: Patient is here today for a physical. Web Weaver Required: No Hand Tapper: Not Required per policy Accompanied by: Self / Same As Patient Allergies No Known Allergies Allergy (Verified 03/24/24 13:55) Medication List - Last Reconciled 03/24/24 by Ranjith Luz MD cholecalciferol (vitamin D3) 25 mcg PO DAILY 30 days Levoxyl (levothyroxine) 112 mcg PO DAILY NS naproxen (Naprosyn) 500 mg PO BID PRN Tobacco use date assessed: 03/24/24 Dental Screening Dental Screen Date: 03/24/24 Did you have a dental visit in the last 12 months?: Yes Did you have a dental problem in the last 6 months where you did not have access to dental care?: No Was dental information given to patient?: Patient has dentist HPI annual exam HPI Details hypothyroidism on rx; doing well [facility] Medical History History of brain tumor Post-surgical hypothyroidism Vitamin D deficiency Surgical History Hx of excision of tumor of brain meninges Hx of total thyroidectomy Family History Father No problems noted. Mother No problems noted. Maternal Grandmother Diabetes mellitus Social History Housing: Apartment Alcohol intake: never Patient Tobacco Use Status: Former Tobacco user Cigarette Packs Per Day: 4 Years Smoked: 4 e-Cigarette/Vaping Use: Never Used Second Hand Smoke Exposure: Yes Substance Use Type: Marijuana service: No Current occupational status: unemployed Current occupational exposures/hazards: No Cognitive needs: No Hearing needs: No Vision needs: Yes Questionnaire PHQ-9 Over the last 2 weeks, how often have you been bothered by any of the following problems? 1. Little interest or pleasure in doing things: not at all 2. Feeling down, depressed, or hopeless: not at all 3. Trouble falling or staying asleep, or sleeping too much: not at all 4. Feeling tired or having little energy: not at all 5. Poor appetite or overeating: not at all 6. Feeling bad about yourself - or that you are a failure or have let yourself or your family down: not at all 7. Trouble concentrating on things, such as reading the newspaper or watching television: not at all 8. Moving or speaking so slowly that other people could have noticed. Or the opposite - being so fidgety or restless that you have been moving around a lot more than usual: not at all 9. Thoughts that you would be better off or of hurting yourself in some way: not at all Total score: 0 Depression Screening Interpretation: Negative Depression Screening Done: Yes Source: Developed by Drs. Jim Valles, Rashida Laguerre, Oleg Dumont and colleagues, with an educational harriet from [employer]. Thrive Questionnaire Date Thrive assessed: 03/24/24 I am a: Patient What is your living situation today?: I have a steady place to live Within the past 12 months, did the food you bought not last and you didn't have the money to get more?: Sometimes True Within the past 12 months, did you worry whether your food would run out before you got money to buy more?: Sometimes True Do you have trouble paying for medicines?: No Do you have trouble getting transportation to medical appointments?: No Do you have trouble paying your heating and electricity bill?: No Do you have trouble taking care of your child, family member or friend?: No Do you have trouble with day-to-day activities such as bathing, preparing meals, shopping, managing finances, etc.?: No Are you currently unemployed and looking for a job?: I choose not to answer this question Are you interested in more education?: I choose not to answer this question Please select the resources that you would like help with: None Currently or been in a relationship where the following occur: I choose not to answer THRIVE Score: 2 AUDIT C Alcohol Use Questionnaire (AUDIT-C) 1. How often do you have a drink containing alcohol?: Never Total Score: 0 SUSAN-7 AMB Questionnaire SUSAN-7 Date SUSAN - 7 assessed: 03/24/24 Feeling nervous, anxious, or on edge: 0 = Not at all Not being able to stop or control worryin = Not at all Worrying too much about different things: 0 = Not at all Trouble relaxin = Not at all Being so restless that it is hard to sit still: 0 = Not at all Becoming easily annoyed or irritable: 0 = Not at all Feeling afraid as if something awful might happen: 0 = Not at all Total SUSAN-7 score (0-4 normal; 5-9 mild; 10-14 moderate; 15-21 severe): 0 Source: Developed by Drs. Jim Valles, Rashida Laguerre, Oleg Dumont and colleagues, with an educational harriet from [employer]. Review of Systems Const Denies chills, Denies fatigue, Denies headache(s) and Denies weight loss Eyes Denies change in vision, Denies diplopia and Denies eye pain ENT Denies vertigo, Denies dizziness, Denies headache(s) and Denies nasal discharge Card Denies chest pain, Denies rapid heart rate and Denies dyspnea on exertion Resp Denies chest congestion, Denies cough, Denies pain with cough and Denies dyspnea on exertion GI Denies abdominal pain, Denies hematochezia and Denies change in bowel habits Musc Denies myalgias, Denies arthralgias and Denies joint swelling Skin/Breast Denies lesions and Denies unusual bruising Neuro Denies vertigo, Denies dizziness, Denies headache(s) and Denies focal weakness Endo Denies fatigue Physical exam (Primary Care) Vital Signs: Last Vital Signs Temp 96.9 F 03/24/24 13:55 Pulse 97 03/24/24 13:55 BP 112/76 03/24/24 13:55 Pulse Ox 97 03/24/24 13:55 Oxygen Delivery Method Room Air 03/24/24 13:55 BMI result Body Mass Index 27.6 Tobacco/Smoking Status: Tobacco use Status Tobacco use date assessed 03/24/24 03/24/24 13:59 Patient Tobacco Use Status Former Tobacco user 03/24/24 13:59 e-Cigarette/Vaping Use Never Used 03/24/24 13:59 PHQ-9: PHQ-9 Score PHQ-9: Total score 0 03/24/24 13:59 Depression Screening Interpretation: Negative Thrive Assessment: Date of Thrive Assessment Date Thrive assessed 03/24/24 03/24/24 13:59 Currently or been in a relationship where the following occur: I choose not to answer Const General: cooperative, healthy appearing and no acute distress Orientation/consciousness: oriented to person, oriented to place and oriented to time HENMT Head: Yes normal to inspection, Yes normocephalic and Yes atraumatic Mouth: Normal oral and palatal mucosa present and tongue normal Throat: Yes posterior oropharynx normal and Yes uvula midline Eyes General: appearance normal, both eyes and all related structures Neck Neck: Yes normal visual inspection, Yes full ROM and Yes no lymphadenopathy Thyroid: Thyroid normal Carotids: normal carotid upstroke Chest Chest palpation & inspection: normal inspection of the chest Resp Effort & Inspection: normal respiratory effort and able to speak in complete sentences Auscultation: clear to auscultation bilaterally Cardio Jugular venous distension: no JVD Palpation: normal PMI Rate: regular rate Rhythm: regular rhythm Heart sounds: S1 normal heart sound present and S2 normal heart sound present GI Inspection: Yes normal to inspection Palpation (GI): Soft to palpation and No hepatosplenomegaly present Auscultation: normal bowel sounds General: Yes no CVA tenderness Back/Spine/Pelvis Back: no CVA tenderness Skin General skin exam: no rashes or lesions noted Neuro General: oriented to person, oriented to place and oriented to time Extrem General: Yes normal to inspection and Yes full ROM Coding Level of Care Code Est Pt Prev Care 40-64y(46261) Diagnoses Physical exam Z00.00 Post-surgical hypothyroidism E89.0 Assessment & Plan Assessment & Plan (1) Physical exam: Code(s): Z00.00 - Encounter for general adult medical examination without abnormal findings Category: Medical Plan: stable; do labs (2) Post-surgical hypothyroidism: Code(s): E89.0 - Postprocedural hypothyroidism Category: Medical Plan: stable; same rx Orders: Orders Complete Blood Count Auto Diff Today Z13.0 - Encounter for screening for diseases of the blood and blood-forming organs and certain disorders involving the immune mechanism Comprehensive [place]. Panel Fast Today Z13.9 - Encounter for screening, unspecified Lipid Panel Today Z13.220 - Encounter for screening for lipoid disorders Thyroid Stimulating Hormone Today Z13.29 - Encounter for screening for other suspected endocrine disorder
[2024-03-24 13:55] VITALS: BP 112/76; PULSE 97; TEMP 36.1; O2SAT 97; BMI 27.6
== END 2024-03-24 14:22 | disposition home or self-care (01) ==
PROVIDERS: PCP Internal Medicine; Visit Provider Internal Medicine
DX: Z00.00 Encounter for general adult medical examination without abnormal findings (principal); E89.0 Postprocedural hypothyroidism

== ENCOUNTER → 2024-03-24 13:49 | Outpatient (BNVA) | payer OTHER, SELFPAY | PROVIDERS: PCP Internal Medicine; Visit Provider Internal Medicine | DX: Z00.00 Encounter for general adult medical examination without abnormal findings (principal); E89.0 Postprocedural hypothyroidism | CPT/HCPCS: 99396 ==

== ENCOUNTER 2024-06-06 16:30 | Outpatient (AMB) | payer OTHER, SELFPAY ==
--- OUTSIDE RECORDS SUMMARY | 2024-06-06 16:34 | XMS_ITS | Encounter Summary ---
Author Organization [employer] Address [address] [place] [address] [address] [place] [address] Care Team Providers Care Resource Economist Name Role Phone Unavailable Primary Care Provider Unavailabl e Encounter Details Date Type Department Care Team (Latest Contact Info) Description 04/07/2019 Abstract [facility] CONVERSIONS Dental, Provider, DDS Social History Tobacco Use Types Packs/Day Years Used Date Smoking Tobacco: Never Assessed Sex and Gender Information Value Date Recorded Sex Assigned at Male 12/12/2021 10:24 AM EDT Legal Sex Male 10:24 AM EDT Gender Identity Male 12/12/2021 10:24 AM EDT Sexual Orientation Straight 12/12/2021 10 :24 AM EDT documented as of this encounter Plan of Treatment Not on file documented as of this encounter Visit Diagnoses Not on filedocumented in this encounter
--- OUTSIDE RECORDS SUMMARY | 2024-06-06 16:34 | XMS_ITS | Encounter Summary ---
Author Organization [employer] Address [address] [place] [address] [address] [place] [address] Care Team Providers Care Aerial Advertiser Name Role Phone Unavailable Primary Care Provider Unavailabl e Encounter Details Date Type Department Care Team (Latest Contact Info) Description 04/04/2018 Abstract [facility] CONVERSIONS Dental, Provider, DDS Social History [...]
--- OUTSIDE RECORDS SUMMARY | 2024-06-06 16:35 | XMS_ITS | Encounter Summary ---
Author Organization [employer] Address [address] [place] [address] [address] [place] [address] Care Team Providers Care Software Systems Architect Name Role Phone Unavailable Primary Care Provider Unavailabl e Encounter Details Date Type Department Care Team (Latest Contact Info) Description 06/14/2020 Abstract [facility] CONVERSIONS Dental, Provider, DDS Social History [...]
--- OUTSIDE RECORDS SUMMARY | 2024-06-06 16:35 | XMS_ITS | Encounter Summary ---
Author Organization [employer] Address [address] [place] [address] [address] [place] [address] Care Team Providers Care Weigher And Mixer Name Role Phone Unavailable Primary Care Provider Unavailabl e Encounter Details Date Type Department Care Team (Latest Contact Info) Description 11/09/2021 Abstract [facility] CONVERSIONS Dental, Provider, DDS Social History [...]
--- OUTSIDE RECORDS SUMMARY | 2024-06-06 16:35 | XMS_ITS | Clinical Summary ---
Author Organization [employer] Address [address] [place] [address] [address] [place] [address] Care Team Providers Care Will Call Order Clerk Name Role Phone Unavailable Primary Care Provider Unavailabl e Allergies No known active allergies Medications Vitamin D High Potency 25 MCG (1000 UT) capsule Take 25 mcg by mouth in the morning. 08/21/2022 Active Levoxyl 112 MCG tablet Take 112 mcg by mouth in the morning. 08/28/2022 Active Social History Tobacco Use Types Packs/Day Years Used Date Smoking Tobacco: Some Days Cigarettes Passive Smoke Exposure: Never Smokeless Tobacco: Never Tobacco Cessation:Ready to Q uit: Not Asked; Counseling Given: Not Answered Sex and Gender Information Value Date Recorded Sex Assigned at Male 12/12/2021 10:24 AM EDT Legal Sex Male 10:24 AM EDT Gender Identity Male 12/12/2021 10:24 AM EDT Sexual Orientation Straight 12/12/2021 10 :24 AM EDT Last Filed Vital Signs Vital Sign Reading Time Taken Comments Blood Pressure 100/62 09/05/2022 9:00 AM EDT Pulse 70 09/05/2022 9:00 AM EDT Temperature - - Respiratory Rate - - Oxygen Saturation - - Inhaled Oxygen Concentration - - Weight - - Height - - Body Mass Index - - Plan of Treatment Health Maintenance Due Date Last Done Comments Depression Screening 1984 HIV Screening 1984 Lipid Panel 1984 SDOH Screening 1984 Alcohol/Substance Use Screening 1996 Family Planning (PISQ) 1999 Hepatitis C Screening 2002 DTaP/Tdap/Td Vaccines (1 - Tdap) 2003 Hepatitis B Vaccines (1 of 3 - 19+ 3-dose series) 2003 Pneumococcal Vaccine: Pediatrics (0 to 5 Years) and At-Risk Patients (6 to 49) Years) (1 of 2 - PCV) 2003 Dental Oral Exam 03/09/2023 09/05/2022, , 07/28/2020, Additional history exists Dental Prophylaxis 03/09/2023 09/05/2022, 0 11/09/2021, 06/14/2020, Additional history exists Dental X-Ray: Full Mouth 06/16/2023 06/14/2020, 11/13 Tobacco Screening 09/06/2023 09/05/2022 Dental X-Ray: Bitewings 09/07/2023 09/06/19 23, 11/09/2021, 06/14/2020, Additional history exists COVID-19 Vaccine (2 - 2023- season) 2023 05/24/2020 Influenza Vaccine (#1) 2023 Zoster Vaccines (1 of 2) 2034 RSV Patients and Patients Aged 60 years or older (1 - 1-dose 75+ series) 2059 HIB Vaccines Aged Out No longer eligi ble based on patient's age to complete this topic HPV Vaccines Aged Out No longer eligi ble based on patient's age to complete this topic Hepatitis A Vaccines Aged Out No long er eligible based on patient's age to complete this topic IPV Vaccines Aged Out No longer eligi ble based on patient's age to complete this topic Meningococcal Vaccine Aged Out No miya denton eligible based on patient's age to complete this topic RSV under 20 months Aged Out No longe r eligible based on patient's age to complete this topic Rotavirus Vaccines Aged Out No longer eligible based on patient's age to complete this topic Procedures Procedure Name Priority Date/Time Associated Diagnosis Comments Full PROPHYLAXIS - ADULT Routine 023 9:00 AM EDT Encounter for dental examination Dental caries BITEWINGS - 4 RADIOGRAPHIC IMAGES Routine 09/05/2022 9:00 AM EDT Encounter for dental examination Dental caries PERIODIC ORAL EVALUATION - ESTABLISHED PATIENT Routine 09/05/2022 9:00 AM EDT Encounter for dental examination Dental caries INTRAORAL - COMPLETE SERIES OF RADIOGRAPHIC IMAGES Routine 06/14/2020 12:00 AM EDT from Last 3 Months or Most Recently Relevant to Health Maintenance Insurance DENTAL - [facility]
--- OUTSIDE RECORDS SUMMARY | 2024-06-06 16:35 | XMS_ITS | Encounter Summary ---
Author Organization [employer] Address [address] [place] [address] [address] [place] [address] Care Team Providers Care Asic Engineer Name Role Phone Unavailable Primary Care Provider Unavailabl e Encounter Details Date Type Department Care Team (Late st Contact Info) Description 09/26/2022 Abstract [facility] [address] [place] [address] Monica iPzano, DDS [address] [place] [address] Social History Tobacco Use Types Packs/Day Years Used Date Smoking Tobacco: Some Days Cigarettes Passive Smoke Exposure: Never Smokeless Tobacco: Never Sex and Gender Information Value Date Recorded [...]
[2024-06-06 16:42] VITALS: BP 110/76; PULSE 73; RESP 20; O2SAT 98; BMI 26.6
--- NOTE | 2024-06-06 16:42 | MHC.PC.OV ---
Vital Signs 06/06/24 16:42 Height 5 ft 1 in Weight 140 lb 12.8 oz BMI 26.6 BP 110/76 Blood Pressure Location Lt brachial Position Sitting Respiration 20 Pulse 73 Pulse Source Pulse Oximeter Temp Source Oral Pulse Oximetry (%) 98 Oxygen Delivery Method Room Air Oxygen Flow Rate 97.8 Intake Visit Reasons: Preop dental clearance for RCT/cleaning Intake Note: Patient is here for a Pre-op for dental cleaning, treatment, and/or procedures with [facility] in [place], [place]; Date of service:TBD. Field Associate Required: No Accompanied by: Self / Same As Patient Allergies No Known Allergies Allergy (Verified 06/06/24 16:56) Medication List - Last Reconciled 06/06/24 by PATRICIA Crooks cholecalciferol (vitamin D3) 25 mcg PO DAILY 30 days Levoxyl (levothyroxine) 112 mcg PO DAILY NS naproxen (Naprosyn) 500 mg PO BID PRN Tobacco use date assessed: 06/06/24 Dental Screening Dental Screen Date: 06/06/24 Did you have a dental visit in the last 12 months?: No Did you have a dental problem in the last 6 months where you did not have access to dental care?: No Was dental information given to patient?: Patient has dentist HPI Preop dental clearance for RCT/cleaning HPI Details The patient is a 39-year-old male presenting with bruxism necessitating dental repair and cleaning. The grinding of his teeth during sleep has led to significant wear. Despite this, he does not yet use a mouthguard but is considering discussing this with his dentist. In his past medical history, he has undergone a ventriculoperitoneal shunt placement for a resolved issue and denies anesthesia complications. His experience with creatine and whey protein started in February as part of a new exercise regimen. He has previously had kidney stones. Other medical issues include low back pain managed conservatively and vitamin D deficiency. Date: The patient reports that he had made an appt as yet, and will make one as soon as he is cleared Location: [facility], [place], [place] Anesthesia: Local Patient denies history of perioperative hypothermia or blood clotting disorders. The patient isn't on any anticoagulation Medical history significant for brain tumor, spine tumor, thyroid removal The patient denies shortness of breath, chest pain, heart palpitation or dizziness Patient having had blood works completed in a while, labs ordered, and we will be attached to this note Noteworthy: Total cholesterol 245, LDL 184, HDL 36-we will discuss starting the patient on a low-dose statin. All other labs were within normal limits, including PT INR. Per patient, they removed the shunt from his head the same day they removed his tumor. [facility] Medical History History of brain tumor Post-surgical hypothyroidism Vitamin D deficiency Surgical History Hx of excision of tumor of brain meninges Hx of total thyroidectomy Family History Father No problems noted. Mother No problems noted. Maternal Grandmother Diabetes mellitus Social History Housing: Apartment Alcohol intake: never Patient Tobacco Use Status: Former Tobacco user Cigarette Packs Per Day: 4 Years Smoked: 4 e-Cigarette/Vaping Use: Never Used Second Hand Smoke Exposure: Yes Substance Use Type: Marijuana service: No Current occupational status: unemployed Current occupational exposures/hazards: No Cognitive needs: No Hearing needs: No Vision needs: Yes Questionnaire Thrive Questionnaire Date Thrive assessed: 06/06/24 I am a: Patient What is your living situation today?: I have a steady place to live Within the past 12 months, did the food you bought not last and you didn't have the money to get more?: Sometimes True Within the past 12 months, did you worry whether your food would run out before you got money to buy more?: Sometimes True Do you have trouble paying for medicines?: No Do you have trouble getting transportation to medical appointments?: No Do you have trouble paying your heating and electricity bill?: No Do you have trouble taking care of your child, family member or friend?: No Do you have trouble with day-to-day activities such as bathing, preparing meals, shopping, managing finances, etc.?: No Are you currently unemployed and looking for a job?: I choose not to answer this question Are you interested in more education?: I choose not to answer this question THRIVE Score: 2 AUDIT C Alcohol Use Questionnaire (AUDIT-C) 1. How often do you have a drink containing alcohol?: Never Total Score: 0 Score Reviewed/Action Taken: No SUSAN-7 AMB Questionnaire SUSAN-7 Date SUSAN - 7 assessed: 03/24/24 Source: Developed by Drs. Jim Valles, Rashida Laguerre, Oleg Dumont and colleagues, with an educational harriet from [employer]. Review of Systems Const Denies headache(s) Eyes Denies loss of vision ENT Denies vertigo, Denies dizziness, Denies headache(s) and Denies sore throat Card Denies chest pain, Denies leg edema and Denies lightheadedness Resp Denies cough, Denies hemoptysis and Denies wheezing GI Denies abdominal pain, Denies melena, Denies constipation, Denies diarrhea and Denies vomiting Denies dysuria, Denies urinary frequency and Denies urinary urgency Musc Denies arthralgias, Denies joint swelling, Denies numbness and Denies tingling Neuro Denies Abnormal speech present, Denies behavioral changes, Denies vertigo, Denies dizziness, Denies headache(s), Denies loss of vision, Denies memory loss, Denies numbness and Denies tingling Psych Denies anxiety, Denies behavioral changes, Denies depression, Denies memory loss and Denies panic attacks Claudio/Lymph Denies easy bleeding and Denies easy bruising Aller/Immun Denies wheezing Physical exam (Primary Care) Vital Signs: Last Vital Signs Pulse 73 06/06/24 16:42 Resp 20 06/06/24 16:42 BP 110/76 06/06/24 16:42 Pulse Ox 98 06/06/24 16:42 Oxygen Delivery Method Room Air 06/06/24 16:42 Oxygen Flow Rate 97.8 06/06/24 16:42 BMI result Body Mass Index 26.6 Tobacco/Smoking Status: Tobacco use Status Tobacco use date assessed 06/06/24 06/06/24 16:51 Patient Tobacco Use Status Former Tobacco user 06/06/24 16:45 e-Cigarette/Vaping Use Never Used 06/06/24 16:45 Thrive Assessment: Date of Thrive Assessment Date Thrive assessed 06/06/24 06/06/24 16:51 Const General: healthy appearing, no acute distress, alert and awake Nutritional Appearance: well nourished Orientation/consciousness: oriented to person, oriented to place and oriented to time HENMT Ears: TM's normal bilaterally General nose exam: Normal nasal mucous membranes and turbinates present Eyes Conjunctivae: conjunctivae normal Sclerae: sclerae normal Pupils: Equal, round and reactive pupils present Neck Neck: Yes no lymphadenopathy and Yes no JVD Thyroid: Thyroid normal Carotids: no bruits Resp Effort & Inspection: normal respiratory effort and not tachypneic Auscultation: no crackles, no rales, no rhonchi and no wheezes Cardio Rate: regular rate Rhythm: regular rhythm Heart sounds: no murmurs and normal S1 and S2 GI Palpation (GI): Soft to palpation, nontender, no hepatomegaly and no splenomegaly Auscultation: normal bowel sounds Skin General skin exam: no rashes or lesions noted and dry skin Neuro General: oriented to person, oriented to place and oriented to time Cranial nerves: Yes Equal, round and reactive pupils present Speech: No Abnormal speech present Gait exam (Neuro): Normal gait present Motor exam (neuro): no tremor noted Extrem Right upper extremity: full ROM Left upper extremity: full ROM Right lower extremity: full ROM; no edema Left lower extremity: full ROM; no edema Psych Mental Status: mental status grossly normal Speech and movement: Normal speech and movement present Affect: normal affect Attitude: cooperative Thought process: Normal thought process present Results Reviewed Results Reviewed: Laboratory Tests 06/07/24 06/07/24 09:41 09:51 WBC 5.4 RBC 5.06 Hgb 14.7 Hct 42.9 MCV 84.8 MCH 29.1 Plt Count 266 PT 11.6 INR 1.0 Sodium 141 Potassium 4.4 Chloride 107 Carbon Dioxide 27 Anion Gap 11 L BUN 16 Creatinine 1.16 Estimated GFR > 60 Fasting Glucose 97 Calcium 9.0 Total Bilirubin 0.8 AST 17 ALT 15 Alkaline Phosphatase 71 Total Protein 6.5 Albumin 4.2 Triglycerides 127 Cholesterol 245 H LDL Cholesterol, Calc 184 H HDL Cholesterol 36 L 25-OH Vitamin D Total 51.0 TSH 2.70 Free T4 1.47 Urine Color Yellow Urine Appearance Clear Urine pH 6.5 Ur Specific [place] 1.025 Urine Protein Trace Urine Glucose (UA) Negative Urine Ketones Trace Urine Blood Negative Urine Nitrite Negative Ur Leukocyte Esterase Negative Coding Level of Care Code Est Pt Level 4 (81218) Diagnoses Preoperative clearance Z01.818 Post-surgical hypothyroidism E89.0 History of brain shunt Z98.2 Vitamin D deficiency E55.9 Bruxism F45.8 Time Spent (min) 38 Assessment & Plan Assessment & Plan (1) Preoperative clearance: Code(s): Z01.818 - Encounter for other preprocedural examination Category: Medical (2) Post-surgical hypothyroidism: Code(s): E89.0 - Postprocedural hypothyroidism Category: Medical (3) History of brain shunt: Code(s): Z98.2 - Presence of cerebrospinal fluid drainage device Category: Surgical (4) Vitamin D deficiency: Code(s): E55.9 - Vitamin D deficiency, unspecified Category: Medical (5) Bruxism: Code(s): F45.8 - Other somatoform disorders Category: Medical Plan Regarding preop clearance, the patient is at acceptable risk for proposed surgery. Reviewed with the patient that no surgery is completely free of risk and that this examination is to assist the surgeon in reviewing informed consent. euthyroidism-continue levothyroxine 112 mcg daily. Labs resulted after visit, noted elevated cholesterol levels; these will be discussed with patient regards starting a low-dose statin. Per patient, the shunt was removed from his head on the same day they removed his tumor. Per notes, the shunt is still in place, but it is not programmed at this time. Obtaining a mouthguard to mitigate the effects of bruxism is advised to prevent further dental wear. The patient's creatinine levels are wnl even though he is taking creatinine supplements,discussed with him that his kidney function needs to be monitored whenever, he is taking creatinine supplements. Patient was informed and verbally consented to the use of an ambient scribe for clinic note documentation during this visit. Orders: Orders Prothrombin Time INR 06/07/24 Z01.818 - Encounter for other preprocedural examination
== END 2024-06-06 17:15 | disposition home or self-care (01) ==
LOC: HO.HMCH 16:31
PROVIDERS: PCP Internal Medicine
DX: Z01.818 Encounter for other preprocedural examination (principal); E89.0 Postprocedural hypothyroidism; Z98.2 Presence of cerebrospinal fluid drainage device; E55.9 Vitamin D deficiency, unspecified; F45.8 Other somatoform disorders

== ENCOUNTER → 2024-06-06 16:30 | Outpatient (BNVA) | payer OTHER, SELFPAY | PROVIDERS: PCP Internal Medicine | DX: Z01.818 Encounter for other preprocedural examination (principal); E89.0 Postprocedural hypothyroidism; E55.9 Vitamin D deficiency, unspecified; F45.8 Other somatoform disorders; Z98.2 Presence of cerebrospinal fluid drainage device; Z87.891 Personal history of nicotine dependence | CPT/HCPCS: 99212 ==

== ENCOUNTER 2024-06-07 09:18 | Outpatient (REF) | payer OTHER, SELFPAY ==
[2024-06-07 09:43] LABS: MANUAL DIFF FLAG NO
[2024-06-07 10:19] LABS: Basophils Absolute Auto 0.1 X10*3/uL (0.0-0.2); Basophils Percent Auto 0.9 % (0-2); Eosinophils Absolute Auto 0.2 X10*3/uL (0.0-0.4); Eosinophils Percent Auto 3.7 % (0-4); Hematocrit 42.9 % (42.0-52.0); Hemoglobin 14.7 g/dl (14.0-18.0); Imm Gran Abs Auto 0.01 X10*3/uL (0.00-0.03); Imm Gran Pct Auto 0.2 % (0.0-0.4); Lymphocytes Absolute Auto 1.5 X10*3/uL (1.2-4.9); Lymphocytes Percent Auto 27.6 % (20-40); Mean Corpuscular HGB Conc 34.3 g/dl (31.0-36.0); Mean Corpuscular Hemoglobin 29.1 pg (27.0-33.0); Mean Corpuscular Volume 84.8 fL (80.0-98.0); Mean Platelet Volume 9.8 fL (9.4-12.4); Monocytes Absolute Auto 0.4 X10*3/uL (0.1-1.2); Monocytes Percent Auto 6.8 % (2-11); Neutrophils Absolute Auto 3.3 x10*3/uL (2.0-8.3); Neutrophils Percent Auto 60.8 % (45-73); Platelet Count 266 X10*3/uL (160-400); Red Blood Count 5.06 X10*6/uL (4.60-5.80); Red Cell Distribution Width 12.9 % (11.0-16.0); White Blood Count 5.4 X10*3/uL (4.8-10.8)
[2024-06-07 10:20] LABS: Basophils Absolute Auto 0.1 X10*3/uL (0.0-0.2); Basophils Percent Auto 0.9 % (0-2); Eosinophils Absolute Auto 0.2 X10*3/uL (0.0-0.4); Eosinophils Percent Auto 3.7 % (0-4); Hematocrit 42.8 % (42.0-52.0); Hemoglobin 14.7 g/dl (14.0-18.0); Imm Gran Abs Auto 0.02 X10*3/uL (0.00-0.03); Imm Gran Pct Auto 0.4 % (0.0-0.4); Lymphocytes Absolute Auto 1.6 X10*3/uL (1.2-4.9); Lymphocytes Percent Auto 29.4 % (20-40); Mean Corpuscular HGB Conc 34.3 g/dl (31.0-36.0); Mean Corpuscular Hemoglobin 28.9 pg (27.0-33.0); Mean Corpuscular Volume 84.3 fL (80.0-98.0); Mean Platelet Volume 9.6 fL (9.4-12.4); Monocytes Absolute Auto 0.3 X10*3/uL (0.1-1.2); Neutrophils Absolute Auto 3.2 x10*3/uL (2.0-8.3); Neutrophils Percent Auto 59.6 % (45-73); Platelet Count 261 X10*3/uL (160-400); Red Blood Count 5.08 X10*6/uL (4.60-5.80); White Blood Count 5.3 X10*3/uL (4.8-10.8)
[2024-06-07 10:26] LABS: Prothrombin Time 11.6 SEC (10.9-12.4)
[2024-06-07 10:39] LABS: Appearance Urine Clear; Color Urine Yellow; Glucose Urine UA Negative (Negative); Leukocyte Esterase Urine Negative (Negative); Nitrite Urine Negative (Negative); PH 6.5 (5.0-9.0); Specific Gravity - Urine 1.025 (1.005-1.025); Urine Blood Negative (Negative); Urine Ketones Trace mg/dL (Negative); Urine Protein Trace mg/dL (Neg-Trace)
[2024-06-07 11:26] LABS: Alanine Aminotransferase 15 U/L (0-40); Albumin Level 4.2 g/dL (3.5-5.0); Alkaline Phosphatase 71 U/L (39-117); Anion Gap 11 (12-20); Aspartate Amino Transferase 17 U/L (5-37); Bilirubin Total 0.8 mg/dL (0.0-1.0); Blood Urea Nitrogen 16 mg/dL (9-16); Carbon Dioxide 27 mmol/L (22-29); Chloride 107 mmol/L (96-108); Cholesterol 245 mg/dL (<200); Estimated Glomerular Filt Rate > 60; Free T4 (Free Thyroxine) 1.47 ng/dL (0.71-1.85); Glucose Fasting 97 mg/dL (60-99); HDL Cholesterol 36 mg/dL (>40); LDL Cholesterol Calculated 184 mg/dL (<100); Potassium 4.4 mmol/L (3.3-5.1); Sodium 141 mmol/L (135-145); Total Protein 6.5 g/dL (6.5-8.0); Triglycerides 127 mg/dL (<150)
[2024-06-07 11:27] LABS: Alanine Aminotransferase 16 U/L (0-40); Albumin Level 4.3 g/dL (3.5-5.0); Alkaline Phosphatase 71 U/L (39-117); Anion Gap 12 (12-20); Aspartate Amino Transferase 19 U/L (5-37); Bilirubin Total 0.8 mg/dL (0.0-1.0); Blood Urea Nitrogen 16 mg/dL (9-16); Calcium 8.9 mg/dL (8.4-10.2); Carbon Dioxide 27 mmol/L (22-29); Chloride 107 mmol/L (96-108); Cholesterol 250 mg/dL (<200); Estimated Glomerular Filt Rate > 60; Glucose Fasting 96 mg/dL (60-99); HDL Cholesterol 37 mg/dL (>40); LDL Cholesterol Calculated 187 mg/dL (<100); Potassium 4.4 mmol/L (3.3-5.1); Sodium 142 mmol/L (135-145); Thyroid Stimulating Hormone 2.78 uIU/mL (0.32-4.0); Total Protein 6.7 g/dL (6.5-8.0); Triglycerides 131 mg/dL (<150)
== END 2024-06-07 09:19 | disposition home or self-care (01) ==
LOC: HO.LAB 09:18
PROVIDERS: Absent Provider Internal Medicine
DX: Z01.818 Encounter for other preprocedural examination (principal); Z13.0 Encounter for screening for diseases of the blood and blood-forming organs and certain disorders involving the immune mechanism; Z13.29 Encounter for screening for other suspected endocrine disorder; Z13.9 Encounter for screening, unspecified; Z13.220 Encounter for screening for lipoid disorders; E55.9 Vitamin D deficiency, unspecified; E89.0 Postprocedural hypothyroidism; Z98.2 Presence of cerebrospinal fluid drainage device; M54.50 Low back pain, unspecified
CPT/HCPCS: 36415; 80053; 80061; 81003; 82306; 84439; 84443; 85025; 85610

== ENCOUNTER 2024-07-29 14:48 | Outpatient (AMB) | payer OTHER, SELFPAY ==
[2024-07-29 14:50] VITALS: BP 118/74; PULSE 90; RESP 16; TEMP 37.2; O2SAT 96; BMI 27.0
--- NOTE | 2024-07-29 14:50 | MHC.PC.OV ---
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 Accompanied by: Self / Same As Patient Allergies No Known Allergies Allergy (Verified 07/29/24 15:08) Medication List - Last Reconciled 07/29/24 by PATRICIA Crooks cholecalciferol (vitamin D3) 25 mcg PO DAILY 30 days Levoxyl (levothyroxine) 112 mcg PO DAILY NS naproxen (Naprosyn) 500 mg PO BID PRN Tobacco use date assessed: 07/29/24 Dental Screening Dental Screen Date: 07/29/24 Did you have a dental visit in the last 12 months?: Yes Did you have a dental problem in the last 6 months where you did not have access to dental care?: No Was dental information given to patient?: Patient has dentist HPI ELIAS DR Luz HPI Details The patient is a 39 year old male presenting to transition care from Dr. Luz who retired. Significant past medical history of postsurgical hypothyroidism, history of brain tumor status post excision, brain shunt since age 7 years old. Second time meeting the patient. He visited few months ago for procedure clearance. He reports that he has been cutting back on creatinine that he has been taking to be get in the gym. He is eating 3 eggs in the morning fried with a whey protein shake. For lunch, he is having chicken breast boiled. The pained cholesterol was noted to be elevated trending since 2022. Reports that his brother cholesterol is also high. States that he has been doing and hour of cardio in the gym, at least three times a week. He wants to try making diary modifications first before starting any medications. He denies chest pain, sob, dizziness, and heart palpitation. No abdominal pain/change in bowel habits. Denies any urinary symptoms. Denies pain. [facility] Medical History History of brain tumor Post-surgical hypothyroidism Vitamin D deficiency Surgical History Hx of excision of tumor of brain meninges Hx of total thyroidectomy Family History Father No problems noted. Mother No problems noted. Maternal Grandmother Diabetes mellitus Social History Housing: Apartment Alcohol intake: never Patient Tobacco Use Status: Former Tobacco user Cigarette Packs Per Day: 4 Years Smoked: 4 e-Cigarette/Vaping Use: Never Used Second Hand Smoke Exposure: Yes Substance Use Type: Marijuana service: No Current occupational status: unemployed Current occupational exposures/hazards: No Cognitive needs: No Hearing needs: No Vision needs: Yes (Glasses) Questionnaire Thrive Questionnaire Date Thrive assessed: 07/29/24 I am a: Patient What is your living situation today?: I have a steady place to live Within the past 12 months, did the food you bought not last and you didn't have the money to get more?: Sometimes True Within the past 12 months, did you worry whether your food would run out before you got money to buy more?: Sometimes True Do you have trouble paying for medicines?: No Do you have trouble getting transportation to medical appointments?: No Do you have trouble paying your heating and electricity bill?: No Do you have trouble taking care of your child, family member or friend?: No Do you have trouble with day-to-day activities such as bathing, preparing meals, shopping, managing finances, etc.?: No Are you currently unemployed and looking for a job?: I choose not to answer this question Are you interested in more education?: I choose not to answer this question THRIVE Score: 2 AUDIT C Alcohol Use Questionnaire (AUDIT-C) 1. How often do you have a drink containing alcohol?: Never Total Score: 0 Score Reviewed/Action Taken: No SUSAN-7 AMB Questionnaire SUSAN-7 Date SUSAN - 7 assessed: 03/24/24 Source: Developed by Drs. Jim Valles, Rashida Laguerre, Oleg Dumont and colleagues, with an educational harriet from [employer]. Review of Systems Const Denies headache(s) Eyes Denies loss of vision ENT Denies vertigo, Denies dizziness, Denies headache(s) and Denies sore throat Card Denies chest pain, Denies leg edema and Denies lightheadedness Resp Denies cough, Denies hemoptysis and Denies wheezing GI Denies abdominal pain, Denies melena, Denies constipation, Denies diarrhea and Denies vomiting Denies dysuria, Denies urinary frequency and Denies urinary urgency Musc Denies arthralgias, Denies joint swelling, Denies numbness and Denies tingling Neuro Denies Abnormal speech present, Denies behavioral changes, Denies vertigo, Denies dizziness, Denies headache(s), Denies loss of vision, Denies memory loss, Denies numbness and Denies tingling Psych Denies anxiety, Denies behavioral changes, Denies depression, Denies memory loss and Denies panic attacks Claudio/Lymph Denies easy bleeding and Denies easy bruising Aller/Immun Denies wheezing Physical exam (Primary Care) Vital Signs: Last Vital Signs Temp 99.0 F 07/29/24 14:50 Pulse 90 07/29/24 14:50 Resp 16 07/29/24 14:50 BP 118/74 07/29/24 14:50 Pulse Ox 96 07/29/24 14:50 Oxygen Delivery Method Room Air 07/29/24 14:50 BMI result Body Mass Index 27.0 Tobacco/Smoking Status: Tobacco use Status Tobacco use date assessed 07/29/24 07/29/24 14:58 Patient Tobacco Use Status Former Tobacco user 07/29/24 14:58 e-Cigarette/Vaping Use Never Used 07/29/24 14:58 Thrive Assessment: Date of Thrive Assessment Date Thrive assessed 07/29/24 07/29/24 14:58 Const General: healthy appearing, no acute distress, alert and awake Nutritional Appearance: well nourished Orientation/consciousness: oriented to person, oriented to place and oriented to time HENMT Ears: TM's normal bilaterally General nose exam: Normal nasal mucous membranes and turbinates present Eyes Conjunctivae: conjunctivae normal Sclerae: sclerae normal Pupils: Equal, round and reactive pupils present Neck Neck: Yes no lymphadenopathy and Yes no JVD Thyroid: Thyroid normal Carotids: no bruits Resp Effort & Inspection: normal respiratory effort and not tachypneic Auscultation: no crackles, no rales, no rhonchi and no wheezes Cardio Rate: regular rate Rhythm: regular rhythm Heart sounds: no murmurs and normal S1 and S2 GI Palpation (GI): Soft to palpation, nontender, no hepatomegaly and no splenomegaly Auscultation: normal bowel sounds Skin General skin exam: no rashes or lesions noted and dry skin Neuro General: oriented to person, oriented to place and oriented to time Cranial nerves: Yes Equal, round and reactive pupils present Speech: No Abnormal speech present Gait exam (Neuro): Normal gait present Motor exam (neuro): no tremor noted Extrem Right upper extremity: full ROM Left upper extremity: full ROM Right lower extremity: full ROM; no edema Left lower extremity: full ROM; no edema Psych Mental Status: mental status grossly normal Speech and movement: Normal speech and movement present Affect: normal affect Attitude: cooperative Thought process: Normal thought process present Coding Level of Care Code Est Pt Level 3 (58987) Diagnoses Pure hypercholesterolemia E78.00 History of brain shunt Z98.2 Vitamin D deficiency E55.9 Post-surgical hypothyroidism E89.0 Time Spent (min) 35 Assessment & Plan Assessment & Plan (1) Pure hypercholesterolemia: Code(s): E78.00 - Pure hypercholesterolemia, unspecified Category: Medical Plan: tri 127, t-chol 184, HDL 38 Long discussion about extended period of high cholesterol Discussed lifestyle modifications including dietary changes and physical activity Encouraged to exercise for at least 30 minutes a day/5 days a week Healthy eating discussed. Encouraged to eat fruits/vegetables, protein-fish/baked chicken, and to avoid salty/fried foods, sweets, caffeine and carbohydrates. Encouraged to increase water intake 6-8 glasses a day We will repeat lipid panel in 3 months and advise (2) History of brain shunt: Code(s): Z98.2 - Presence of cerebrospinal fluid drainage device Category: Surgical Plan: Stable. Remains neurologically intact. We will continue to monitor (3) Vitamin D deficiency: Code(s): E55.9 - Vitamin D deficiency, unspecified Category: Medical Plan: Continue vitamin D3 25 mcg daily (4) Post-surgical hypothyroidism: Code(s): E89.0 - Postprocedural hypothyroidism Category: Medical Plan: Continue levothyroxine 112 mcg daily We will check thyroid function in 3 months Orders: Orders Complete Blood Count Auto Diff 3 Months E55.9 - Vitamin D deficiency, unspecified, E78.00 - Pure hypercholesterolemia, unspecified, E89.0 - Postprocedural hypothyroidism, Z98.2 - Presence of cerebrospinal fluid drainage device Comprehensive Ewing. Panel Fast 3 Months E55.9 - Vitamin D deficiency, unspecified, E78.00 - Pure hypercholesterolemia, unspecified, E89.0 - Postprocedural hypothyroidism, Z98.2 - Presence of cerebrospinal fluid drainage device Lipid Panel 3 Months E55.9 - Vitamin D deficiency, unspecified, E78.00 - Pure hypercholesterolemia, unspecified, E89.0 - Postprocedural hypothyroidism, Z98.2 - Presence of cerebrospinal fluid drainage device Free T4 (Free Thyroxine) 3 Months E55.9 - Vitamin D deficiency, unspecified, E78.00 - Pure hypercholesterolemia, unspecified, E89.0 - Postprocedural hypothyroidism, Z98.2 - Presence of cerebrospinal fluid drainage device TSH reflex Free T4 3 Months E55.9 - Vitamin D deficiency, unspecified, E78.00 - Pure hypercholesterolemia, unspecified, E89.0 - Postprocedural hypothyroidism, Z98.2 - Presence of cerebrospinal fluid drainage device UA CC w/rflx Micro + Cult 3 Months E55.9 - Vitamin D deficiency, unspecified, E78.00 - Pure hypercholesterolemia, unspecified, E89.0 - Postprocedural hypothyroidism, Z98.2 - Presence of cerebrospinal fluid drainage device Vitamin D 25-OH Total 3 Months E55.9 - Vitamin D deficiency, unspecified, E78.00 - Pure hypercholesterolemia, unspecified, E89.0 - Postprocedural hypothyroidism, Z98.2 - Presence of cerebrospinal fluid drainage device
--- OUTSIDE RECORDS SUMMARY | 2024-07-29 17:09 | XMS_ITS | Encounter Summary ---
Author Organization [employer] Address [address] [facility] [address] [place] [address] Care Team Providers Care Second Steward Name Role Phone Unavailable Primary Care Provider Unavailabl e Encounter Details Date Type Department Care Team (Latest Contact Info) Description 04/04/2018 Abstract [facility] CONVERSIONS Dental, Provider, DDS Social History [...]
== END 2024-07-29 15:30 | disposition home or self-care (01) ==
LOC: HO.HMCH 14:49
PROVIDERS: PCP Internal Medicine
DX: E78.00 Pure hypercholesterolemia, unspecified (principal); Z98.2 Presence of cerebrospinal fluid drainage device; E55.9 Vitamin D deficiency, unspecified; E89.0 Postprocedural hypothyroidism

== ENCOUNTER → 2024-07-29 14:48 | Outpatient (BNVA) | payer OTHER, SELFPAY | PROVIDERS: PCP Internal Medicine | DX: E89.0 Postprocedural hypothyroidism (principal); E78.00 Pure hypercholesterolemia, unspecified; E55.9 Vitamin D deficiency, unspecified; Z98.2 Presence of cerebrospinal fluid drainage device | CPT/HCPCS: 99212 ==

== ENCOUNTER 2024-10-28 15:32 | Outpatient (REF) | payer OTHER, SELFPAY ==
[2024-10-28 16:04] LABS: MANUAL DIFF FLAG NO
[2024-10-28 16:10] LABS: Hematocrit 40.8 % (42.0-52.0); Hemoglobin 13.8 g/dl (14.0-18.0); Imm Gran Abs Auto 0.02 X10*3/uL (0.00-0.03); Imm Gran Pct Auto 0.3 % (0.0-0.4); Lymphocytes Absolute Auto 1.9 X10*3/uL (1.2-4.9); Mean Corpuscular HGB Conc 33.8 g/dl (31.0-36.0); Mean Corpuscular Hemoglobin 29.7 pg (27.0-33.0); Mean Corpuscular Volume 87.9 fL (80.0-98.0); NRBC Abs Auto 0.000 X10*3/uL (0.0-0.012); NRBC Pct Auto 0.0 /100WBC (0.0-0.2); Platelet Count 279 X10*3/uL (160-400); Red Blood Count 4.64 X10*6/uL (4.60-5.80); White Blood Count 6.8 X10*3/uL (4.8-10.8)
[2024-10-28 16:52] LABS: Alanine Aminotransferase 16 U/L (0-40); Albumin Level 3.9 g/dL (3.5-5.0); Alkaline Phosphatase 71 U/L (39-117); Anion Gap 11 (12-20); Aspartate Amino Transferase 16 U/L (5-37); Blood Urea Nitrogen 8 mg/dL (9-16); Calcium 8.6 mg/dL (8.4-10.2); Carbon Dioxide 30 mmol/L (22-29); Chloride 109 mmol/L (96-108); Cholesterol 230 mg/dL (<200); Estimated Glomerular Filt Rate > 60; HDL Cholesterol 40 mg/dL (>40); Potassium 4.5 mmol/L (3.3-5.1); Sodium 145 mmol/L (135-145); Total Protein 6.0 g/dL (6.5-8.0); Triglycerides 163 mg/dL (<150)
[2024-10-28 17:16] LABS: Free T4 (Free Thyroxine) 0.88 ng/dL (0.71-1.85)
--- OUTSIDE RECORDS SUMMARY | 2024-10-28 18:53 | XMS_ITS | Encounter Summary ---
Author Organization [employer] Address [address] [facility] [address] [place] [address] Care Team Providers Care Logistics Specialist Name Role Phone Unavailable Primary Care Provider Unavailabl e Encounter Details Date Type Department Care Team (Latest Contact Info) Description 11/09/2021 Abstract [facility] CONVERSIONS Dental, Provider, DDS Social History Tobacco [...]
--- OUTSIDE RECORDS SUMMARY | 2024-10-28 18:53 | XMS_ITS | Clinical Summary ---
Author Organization [employer] Address [address] [place] [address] [address] [place] [address] Care Team Providers Care Electronic Die Maker Name Role Phone Unavailable Primary Care Provider [...] 1984 Lipid Panel 1984 SDOH Screening 1984 Disability Screening 1984 Alcohol/Substance Use Screening 1996 Family Planning (PISQ) 1999 HPV Vaccines (1 - Male 3-dose series) 1999 Hepatitis C Screening 2002 DTaP/Tdap/Td Vaccines (1 - Tdap) 2003 Hepatitis B Vaccines (1 of 3 - 19+ 3-dose series) 2003 Pneumococcal Vaccine: Pediatrics (0 to 5 Years) and At-Risk Patients (6 to 49) Years (1 of 2 - PCV) 2003 Dental Oral Exam 03/09/2023 09/05/2022, , 07/28/2020, Additional history exists Dental Prophylaxis 03/09/2023 09/05/2022, 0 11/09/2021, 06/14/2020, Additional history exists Dental X-Ray: Full Mouth 06/16/2023 06/14/2020, 11/13 Tobacco Screening 09/06/2023 09/05/2022 Dental X-Ray: Bitewings 09/07/2023 09/06/19 23, 11/09/2021, 06/14/2020, Additional history exists COVID-19 Vaccine (2 - 2024- season) 2024 05/24/2020 Influenza Vaccine (#1) 2024 Zoster Vaccines (1 of 2) 2034 RSV [...] patient's age to complete this topic Meningococcal B Vaccine Aged Out No l onger eligible based on patient's age to complete [...] Most Recently Relevant to Health Maintenance Insurance - [facility]
--- OUTSIDE RECORDS SUMMARY | 2024-10-28 18:53 | XMS_ITS | Encounter Summary ---
Author Organization [employer] Address [address] [facility] [address] [place] [address] Care Team Providers Care Chiropractor Sole Practitioner Name Role Phone Unavailable Primary Care Provider Unavailabl e Encounter Details Date Type Department Care Team (Late st Contact Info) Description 09/26/2022 Abstract [facility]ULT D[facility]AL [address] [place] [address] Monica Pizano, DDS [address], [place] [id number] Social History Tobacco Use Types Packs/Day Years [...]
--- OUTSIDE RECORDS SUMMARY | 2024-10-28 18:53 | XMS_ITS | Encounter Summary ---
Author Organization [employer] Address [address] [facility] [address] [place] [address] Care Team Providers Care Mountain Services Manager Name Role Phone Unavailable Primary Care Provider Unavailabl e Encounter Details Date Type Department Care Team (Latest Contact Info) Description 04/04/2018 Abstract [facility] CONVERSIONS Dental, Provider, DDS Social History [...]
--- OUTSIDE RECORDS SUMMARY | 2024-10-28 18:53 | XMS_ITS | Encounter Summary ---
Author Organization [employer] Address [address] [facility] [address] [place] [address] Care Team Providers Care Diagnostic Imaging Manager Name Role Phone Unavailable Primary Care Provider Unavailabl e Encounter Details Date Type Department Care Team (Latest Contact Info) Description 04/07/2019 Abstract [facility] CONVERSIONS Dental, Provider, DDS Social History [...]
--- OUTSIDE RECORDS SUMMARY | 2024-10-28 18:53 | XMS_ITS | Encounter Summary ---
Author Organization [employer] Address [address] [facility] [address] [place] [address] Care Team Providers Care Records Management Coordinator Name Role Phone Unavailable Primary Care Provider Unavailabl e Encounter Details Date Type Department Care Team (Latest Contact Info) Description 06/14/2020 Abstract [facility] CONVERSIONS Dental, Provider, DDS Social History [...]
== END 2024-10-28 15:33 | disposition home or self-care (01) ==
LOC: HO.LAB 15:32
DX: E89.0 Postprocedural hypothyroidism (principal); E55.9 Vitamin D deficiency, unspecified; E78.00 Pure hypercholesterolemia, unspecified; Z98.2 Presence of cerebrospinal fluid drainage device
CPT/HCPCS: 36415; 80053; 80061; 82306; 84439; 84443; 85025

== ENCOUNTER 2024-12-05 16:48 | Emergency (ER) | payer OTHER, SELFPAY ==
--- NOTE | ~2024-12-05 | CT_ITS ---
CLINICAL HISTORY: fall, hearing loss left ear TANNER CT head without contrast Comparison: 10/04/2022 Findings: No intracranial mass, midline shift, hydrocephalus, or acute hemorrhage. No CT evidence of acute ischemia. A right parietal approach ventriculostomy catheter is re-identified, distal tip overlies left lateral ventricle. There is some interval progression of the right cerebellar encephalomalacia (2; 11) compared with the prior exam. Visualized paranasal sinuses and mastoid air cells normal. Orbits unremarkable. No skull fracture Impression: 1. No acute intracranial abnormalities. This document has been electronically signed by: Son Washington MD on 12/05/2024 17:42:18
[2024-12-05 17:05] VITALS: BP 116/77; PULSE 79; RESP 18; TEMP 36.3; O2SAT 97; BMI 25.0
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
[2024-12-05 18:20] VITALS: BP 127/81; PULSE 72; RESP 18; TEMP 36.3; O2SAT 97
--- OUTSIDE RECORDS SUMMARY | 2024-12-05 18:42 | XMS_ITS | Encounter Summary ---
Author Organization [employer] Address [address] [facility] [address] [place] [address] Care Team Providers Care Refractory Products Supervisor Name Role Phone Unavailable Primary Care Provider Unavailabl e Encounter Details Date Type Department Care Team (Latest Contact Info) Description 04/04/2018 Abstract [facility] CONVERSIONS Dental, Provider, DDS Social History [...]
--- OUTSIDE RECORDS SUMMARY | 2024-12-05 18:43 | XMS_ITS | Encounter Summary ---
Author Organization [employer] Address [address] [facility] [address] [place] [address] Care Team Providers Care Life Insurance Specialist Name Role Phone Unavailable Primary Care Provider Unavailabl e Encounter Details Date Type Department Care Team (Latest Contact Info) Description 04/07/2019 Abstract [facility] CONVERSIONS Dental, Provider, DDS Social History [...]
--- OUTSIDE RECORDS SUMMARY | 2024-12-05 18:44 | XMS_ITS | Encounter Summary ---
Author Organization [employer] Address [address] [facility] [address] [place] [address] Care Team Providers Care Fish Hatchery Supervisor Name Role Phone Unavailable Primary Care Provider Unavailabl e Encounter Details Date Type Department Care Team (Late st Contact Info) Description 09/26/[address] [facility] ADULT DENTAL [address] [place] [address] Monica Pizano, DDS [address] [place], [place] [id number] Social History Tobacco Use Types Packs/Day Years [...]
--- OUTSIDE RECORDS SUMMARY | 2024-12-05 18:44 | XMS_ITS | Encounter Summary ---
Author Organization [employer] Address [address] [facility] [address] [place] [address] Care Team Providers Care Retail Advertising Account Executive Name Role Phone Unavailable Primary Care Provider Unavailabl e Encounter Details Date Type Department Care Team (Latest Contact Info) Description 11/09/2021 Abstract [facility] CONVERSIONS Dental, Provider, DDS Social History Tobacco [...]
--- OUTSIDE RECORDS SUMMARY | 2024-12-05 18:44 | XMS_ITS | Encounter Summary ---
Author Organization [employer] Address [address] [facility] [address] [place] [address] Care Team Providers Care College President Name Role Phone Unavailable Primary Care Provider Unavailabl e Encounter Details Date Type Department Care Team (Latest Contact Info) Description 06/14/2020 Abstract [facility] CONVERSIONS Dental, Provider, DDS Social History [...]
--- OUTSIDE RECORDS SUMMARY | 2024-12-05 18:45 | XMS_ITS | Clinical Summary ---
Author Organization [employer] Address [address] [place] [address] [address] [place] [address] Care Team Providers Care Sneller Hand Name Role Phone Unavailable Primary Care Provider [...] Recently Relevant to Health Maintenance Insurance - [facility]
[2024-12-05 19:27] VITALS: BP 115/77; PULSE 59; RESP 20; TEMP 36.6; O2SAT 97
[2024-12-05 19:32] VITALS: BP 115/77; PULSE 59; RESP 20; TEMP 36.6; O2SAT 97
== END 2024-12-05 19:32 | disposition home or self-care (01) ==
PROVIDERS: Emergency Provider Emergency Medicine
DX: H91.92 Unspecified hearing loss, left ear (principal); Z87.891 Personal history of nicotine dependence; Z98.890 Other specified postprocedural states; E78.00 Pure hypercholesterolemia, unspecified; E03.9 Hypothyroidism, unspecified
CPT/HCPCS: 70450; 99284

== ENCOUNTER → 2024-12-05 17:07 | Outpatient (BNV) | payer OTHER, SELFPAY | PROVIDERS: Visit Provider Radiology Diagnostic Radiology | DX: R51.9 Headache, unspecified (principal); H91.92 Unspecified hearing loss, left ear; W19.XXXA Unspecified fall, initial encounter | CPT/HCPCS: 70450 ==

== ENCOUNTER 2024-12-22 19:54 | Emergency (ER) | payer OTHER, SELFPAY ==
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
[2024-12-22 19:57] VITALS: BP 132/84; BP 138/83; PULSE 128; PULSE 131; RESP 20; TEMP 37.1; O2SAT 96; O2SAT 97; BMI 24.7
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
--- OUTSIDE RECORDS SUMMARY | 2024-12-22 20:31 | XMS_ITS | Encounter Summary ---
Author Organization [employer] Address [address] [facility] [address] [place] [address] Care Team Providers Care Information Technology Teacher Name Role Phone Unavailable Primary Care Provider Unavailabl e Encounter Details Date Type Department Care Team (Latest Contact Info) Description 04/04/2018 Abstract [facility] CONVERSIONS Dental, Provider, DDS Social History [...]
--- OUTSIDE RECORDS SUMMARY | 2024-12-22 20:31 | XMS_ITS | Encounter Summary ---
Author Organization [employer] Address [address] [facility] [address] [place] [address] Care Team Providers Care Surveillance Operator Name Role Phone Unavailable Primary Care Provider Unavailabl e Encounter Details Date Type Department Care Team (Late st Contact Info) Description 09/26/2022 Abstract [facility] ADULT DENTAL [address] [place] [address] Monica Pizano, DDS [address] [place] [address] Social History Tobacco Use Types Packs/Day Years [...]
--- OUTSIDE RECORDS SUMMARY | 2024-12-22 20:31 | XMS_ITS | Encounter Summary ---
Author Organization [employer] Address [address] [facility] [address] [place] [address] Care Team Providers Care Instrument Assembler Name Role Phone Unavailable Primary Care Provider Unavailabl e Encounter Details Date Type Department Care Team (Latest Contact Info) Description 11/09/2021 Abstract [facility] CONVERSIONS Dental, Provider, DDS Social History [...]
--- OUTSIDE RECORDS SUMMARY | 2024-12-22 20:31 | XMS_ITS | Encounter Summary ---
Author Organization [employer] Address [address] [facility] [address] [place] [address] Care Team Providers Care Cargo Trimmer Name Role Phone Unavailable Primary Care Provider Unavailabl e Encounter Details Date Type Department Care Team (Latest Contact Info) Description 04/07/2019 Abstract [facility] CONVERSIONS Dental, Provider, DDS Social History [...]
--- OUTSIDE RECORDS SUMMARY | 2024-12-22 20:31 | XMS_ITS | Encounter Summary ---
Author Organization [employer] Address [address] [place] [address] [address] [place] [address] Care Team Providers Care Demand Generator Manager Name Role Phone Unavailable Primary Care Provider Unavailabl e Encounter Details Date Type Department Care Team (Latest Contact Info) Description 06/14/2020 Abstract [facility] CONVERSIONS Dental, Provider, DDS Social History Tobacco [...]
--- OUTSIDE RECORDS SUMMARY | 2024-12-22 20:31 | XMS_ITS | Clinical Summary ---
Author Organization [employer] Address [address] [place] [address] [address] [place] [address] Care Team Providers Care Ecologist Technician Name Role Phone Unavailable Primary Care Provider [...] Recently Relevant to Health Maintenance Insurance - [facility]
[2024-12-22 23:01] VITALS: BP 121/69; PULSE 102; RESP 16; TEMP 37.4; O2SAT 97
== END 2024-12-22 23:02 | disposition home or self-care (01) ==
PROVIDERS: Emergency Provider Emergency Medicine
DX: S09.90XA Unspecified injury of head, initial encounter (principal); Y08.02XA Assault by strike by baseball bat, initial encounter; Y93.9 Activity, unspecified; Y92.9 Unspecified place or not applicable; Y99.9 Unspecified external cause status; E03.8 Other specified hypothyroidism; E55.9 Vitamin D deficiency, unspecified
CPT/HCPCS: 70450; 99282; 99284

== ENCOUNTER → 2024-12-22 20:27 | Outpatient (BNV) | payer OTHER, SELFPAY | PROVIDERS: Emergency Provider Emergency Medicine; Visit Provider Radiology Diagnostic Radiology | DX: S09.90XA Unspecified injury of head, initial encounter (principal); W21.11XA Struck by baseball bat, initial encounter | CPT/HCPCS: 70450 ==

== ENCOUNTER 2025-01-14 11:26 | Outpatient (AMB) | payer OTHER, SELFPAY ==
[2025-01-14 11:31] VITALS: BP 100/68; PULSE 96; RESP 18; O2SAT 98; BMI 25.6
--- NOTE | 2025-01-14 11:31 | MHC.PC.OV ---
Vital Signs 01/14/25 11:31 Height 5 ft 2 in Weight 140 lb BMI 25.6 BP 100/68 Blood Pressure Location Lt brachial Position Sitting Respiration 18 Pulse 96 Pulse Source Pulse Oximeter Temp Source Temporal Artery Scan Pulse Oximetry (%) 98 Oxygen Delivery Method Room Air Intake Visit Reasons: hld/hypothryoidism Machine Strap Buckler Required: No Accompanied by: Self / Same As Patient Allergies No Known Allergies Allergy (Verified 01/14/25 11:45) Medication List - Last Reconciled 01/14/25 by PATRICIA Crooks cholecalciferol (vitamin D3) 25 mcg PO DAILY 30 days Levoxyl (levothyroxine) 112 mcg PO DAILY NS naproxen (Naprosyn) 500 mg PO BID PRN Tobacco use date assessed: 01/14/25 Dental Screening Dental Screen Date: 01/14/25 Did you have a dental visit in the last 12 months?: Yes Did you have a dental problem in the last 6 months where you did not have access to dental care?: No Was dental information given to patient?: Patient has dentist HPI HPI Comments History of Present Illness Details The patient is a 39 year old individual presenting for follow-up on left-sided hearing loss and review of recent lab results. The patient reports developing hearing loss in the left ear after hitting the head on a refrigerator a couple of days prior. The patient was evaluated by an ENT specialist at [facility], where an MRI was performed and found to be negative for tumors. Treatment included a course of oral prednisone and three steroid injections into the ear, which resulted in slight improvement but did not fully resolve the hearing loss. The ENT specialist recommended obtaining a hearing aid. A review of recent lab work revealed that the cholesterol level has decreased to 158 from a previous value of 184, although it remains elevated. The patient has been making dietary changes, including consuming only egg whites, to manage cholesterol. The labs also indicated slight anemia, and thyroid function was normal. The patient's glasses are broken, and the patient is awaiting an appointment to get new ones. Health Maintenance The patient needs to obtain new glasses, as the current ones are broken. Advised to follow up on obtaining a hearing aid as recommended by ENT. The patient will follow up in the clinic in three months for lab recheck and medication management. Social History - Diet: The patient reports eating three meals a day and has stopped eating egg yolks to lower cholesterol, now consuming only egg whites. Results - Labs: Recent blood work shows slight anemia. - Total cholesterol has decreased from 184 to 158. - Thyroid function is normal. - Urinalysis is normal. - Imaging: An MRI of the head was negative for tumors. [facility] Medical History Vitamin D deficiency Post-surgical hypothyroidism History of brain tumor Surgical History Hx of excision of tumor of brain meninges Hx of total thyroidectomy Family History Father No problems noted. Mother No problems noted. Maternal Grandmother Diabetes mellitus Social History Housing: Apartment Alcohol intake: never Patient Tobacco Use Status: Former Tobacco user Cigarette Packs Per Day: 4 Years Smoked: 4 e-Cigarette/Vaping Use: Never Used Second Hand Smoke Exposure: Yes Substance Use Type: Marijuana service: No Current occupational status: unemployed Current occupational exposures/hazards: No Cognitive needs: No Hearing needs: No Vision needs: Yes (Glasses) Questionnaire Thrive Questionnaire Date Thrive assessed: 01/14/25 I am a: Patient What is your living situation today?: I have a steady place to live Within the past 12 months, did the food you bought not last and you didn't have the money to get more?: Sometimes True Within the past 12 months, did you worry whether your food would run out before you got money to buy more?: Sometimes True Do you have trouble paying for medicines?: No Do you have trouble getting transportation to medical appointments?: No Do you have trouble paying your heating and electricity bill?: No Do you have trouble taking care of your child, family member or friend?: No Do you have trouble with day-to-day activities such as bathing, preparing meals, shopping, managing finances, etc.?: No Are you currently unemployed and looking for a job?: I choose not to answer this question Are you interested in more education?: I choose not to answer this question Please select the resources that you would like help with: None Currently or been in a relationship where the following occur: I choose not to answer THRIVE Score: 2 AUDIT C Alcohol Use Questionnaire (AUDIT-C) 1. How often do you have a drink containing alcohol?: Never Total Score: 0 SUSAN-7 AMB Questionnaire SUSAN-7 Date SUSAN - 7 assessed: 01/14/25 Feeling nervous, anxious, or on edge: 0 = Not at all Not being able to stop or control worryin = Not at all Worrying too much about different things: 0 = Not at all Trouble relaxin = Not at all Being so restless that it is hard to sit still: 0 = Not at all Becoming easily annoyed or irritable: 0 = Not at all Feeling afraid as if something awful might happen: 0 = Not at all Total SUSAN-7 score (0-4 normal; 5-9 mild; 10-14 moderate; 15-21 severe): 0 Source: Developed by Drs. Jim Valles, Rashida Laguerre, Oleg Dumont and colleagues, with an educational harriet from [employer]. Review of Systems Const Denies headache(s) Eyes Denies loss of vision ENT Denies vertigo, Denies dizziness, Denies headache(s), Reports hearing loss (Left ear) and Denies sore throat Card Denies chest pain, Denies leg edema and Denies lightheadedness Resp Denies cough, Denies hemoptysis and Denies wheezing GI Denies abdominal pain, Denies melena, Denies constipation, Denies diarrhea and Denies vomiting Denies dysuria, Denies urinary frequency and Denies urinary urgency Musc Denies arthralgias, Denies joint swelling, Denies numbness and Denies tingling Neuro Denies Abnormal speech present, Denies behavioral changes, Denies vertigo, Denies dizziness, Denies headache(s), Denies loss of vision, Denies memory loss, Denies numbness and Denies tingling Psych Denies anxiety, Denies behavioral changes, Denies depression, Denies memory loss and Denies panic attacks Claudio/Lymph Denies easy bleeding and Denies easy bruising Aller/Immun Denies wheezing Physical exam (Primary Care) Vital Signs: Last Vital Signs Pulse 96 01/14/25 11:31 Resp 18 01/14/25 11:31 BP 100/68 01/14/25 11:31 Pulse Ox 98 12/03/25 11:31 Oxygen Delivery Method Room Air 01/14/25 11:31 BMI result Body Mass Index 25.6 Tobacco/Smoking Status: Tobacco use Status Tobacco use date assessed 01/14/25 01/14/25 11:37 Patient Tobacco Use Status Former Tobacco user 01/14/25 11:37 e-Cigarette/Vaping Use Never Used 01/14/25 11:37 Thrive Assessment: Date of Thrive Assessment Date Thrive assessed 01/14/25 01/14/25 11:37 Currently or been in a relationship where the following occur: I choose not to answer Narrative Physical Exam - Respiratory: Lungs are clear to auscultation bilaterally. Const General: healthy appearing, no acute distress, alert and awake Nutritional Appearance: well nourished Orientation/consciousness: oriented to person, oriented to place and oriented to time HENMT Ears: TM's normal bilaterally General nose exam: Normal nasal mucous membranes and turbinates present Eyes Conjunctivae: conjunctivae normal Sclerae: sclerae normal Pupils: Equal, round and reactive pupils present Neck Neck: Yes no lymphadenopathy and Yes no JVD Thyroid: Thyroid normal Carotids: no bruits Resp Effort & Inspection: normal respiratory effort and not tachypneic Auscultation: no crackles, no rales, no rhonchi and no wheezes Cardio Rate: regular rate Rhythm: regular rhythm Heart sounds: no murmurs and normal S1 and S2 GI Palpation (GI): Soft to palpation, nontender, no hepatomegaly and no splenomegaly Auscultation: normal bowel sounds Skin General skin exam: no rashes or lesions noted and dry skin Neuro General: oriented to person, oriented to place and oriented to time Cranial nerves: Yes Equal, round and reactive pupils present Speech: No Abnormal speech present Gait exam (Neuro): Normal gait present Motor exam (neuro): no tremor noted Extrem Right upper extremity: full ROM Left upper extremity: full ROM Right lower extremity: full ROM; no edema Left lower extremity: full ROM; no edema Psych Mental Status: mental status grossly normal Speech and movement: Normal speech and movement present Affect: normal affect Attitude: cooperative Thought process: Normal thought process present Results Reviewed Results Reviewed: Laboratory Tests 10/28/24 16:00 WBC 6.8 RBC 4.64 Hgb 13.8 L Hct 40.8 L MCV 87.9 MCH 29.7 MCHC 33.8 RDW 13.9 Plt Count 279 Sodium 145 Potassium 4.5 Chloride 109 H Carbon Dioxide 30 H Anion Gap 11 L BUN 8 L Creatinine 1.25 Estimated GFR > 60 Fasting Glucose 90 Calcium 8.6 Total Bilirubin 0.4 AST 16 ALT 16 Alkaline Phosphatase 71 Total Protein 6.0 L Albumin 3.9 Triglycerides 163 H Cholesterol 230 H LDL Cholesterol, Calc 158 H HDL Cholesterol 40 L 25-OH Vitamin D Total 44.5 TSH 5.29 H Free T4 0.88 Coding Level of Care Code Est Pt Level 4 (05836) Diagnoses Pure hypercholesterolemia E78.00 History of brain shunt Z98.2 Vitamin D deficiency E55.9 Post-surgical hypothyroidism E89.0 Hearing loss in left ear H91.92 Hearing loss type: unspecified Anemia, unspecified type D64.9 Anemia type: unspecified type Time Spent (min) 35 Assessment & Plan Assessment & Plan (1) Pure hypercholesterolemia: Code(s): E78.00 - Pure hypercholesterolemia, unspecified Category: Medical Plan: Triglycerides 163, total cholesterol decreased from 245-230, LDL decreased from 184-158, HDL improved from 36-40 Continue lifestyle modification and start atorvastatin 10 mg at bedtime (2) History of brain shunt: Code(s): Z98.2 - Presence of cerebrospinal fluid drainage device Category: Surgical Plan: Stable. Remains neurologically intact. We will continue to monitor (3) Vitamin D deficiency: Code(s): E55.9 - Vitamin D deficiency, unspecified Category: Medical Plan: Continue vitamin D3 25 mcg daily (4) Post-surgical hypothyroidism: Code(s): E89.0 - Postprocedural hypothyroidism Category: Medical Plan: TSH 5.29 and free T4 0.88 Continue levothyroxine 112 mcg daily We will recheck thyroid function in 3 months (5) Hearing loss in left ear: Code(s): H91.92 - Unspecified hearing loss, left ear Category: Medical Qualifiers: Hearing loss type: unspecified Qualified Code(s): H91.92 - Unspecified hearing loss, left ear Plan: The patient has persistent left-sided hearing loss following a head injury, despite treatment with oral prednisone and three intratympanic steroid injections. An MRI has ruled out any tumors. The patient is advised to follow the ENT specialist's recommendation to obtain a hearing aid. The patient was seen at ENT at [facility]. (6) Anemia: Code(s): D64.9 - Anemia, unspecified Category: Medical Qualifiers: Anemia type: unspecified type Qualified Code(s): D64.9 - Anemia, unspecified Plan: Recent labs show a slight anemia, which is considered clinically insignificant at this time. The plan is to monitor and recheck labs in a couple of months Plan Plan Discussion Notes I reviewed the patient's recent lab results. I noted that the patient is slightly anemic but explained that this is not a concern at present and we will re-check it in a few months. I discussed the cholesterol levels, acknowledging the patient's significant dietary efforts which resulted in a drop from 184 to 158. I explained that while the improvement is great, the level is still high, and a low-dose medication would provide an additional boost. I have prescribed atorvastatin to be taken at night to help bring the cholesterol down further. We discussed the plan for the patient to get new glasses and a hearing aid, and to follow up in three months to recheck cholesterol. Patient Instructions - acupressurist your new cholesterol medication, atorvastatin, from the pharmacy. - Take the atorvastatin at nighttime to help lower your cholesterol. - Get your new eyeglasses made, as your current pair is broken. - Follow the advice of your hearing instrument specialist and get a hearing aid for your left ear. - Please schedule a follow-up appointment in 3 months to check your cholesterol levels. Orders: Orders Complete Blood Count Auto Diff 3 Months D64.9 - Anemia, unspecified, E55.9 - Vitamin D deficiency, unspecified, E78.00 - Pure hypercholesterolemia, unspecified Comprehensive Liscomb. Panel Fast 3 Months D64.9 - Anemia, unspecified, E55.9 - Vitamin D deficiency, unspecified, E78.00 - Pure hypercholesterolemia, unspecified Vitamin D 25-OH Total 3 Months D64.9 - Anemia, unspecified, E55.9 - Vitamin D deficiency, unspecified, E78.00 - Pure hypercholesterolemia, unspecified Lipid Panel 3 Months D64.9 - Anemia, unspecified, E55.9 - Vitamin D deficiency, unspecified, E78.00 - Pure hypercholesterolemia, unspecified UA CC w/rflx Micro + Cult 3 Months D64.9 - Anemia, unspecified, E55.9 - Vitamin D deficiency, unspecified, E78.00 - Pure hypercholesterolemia, unspecified TSH reflex Free T4 3 Months D64.9 - Anemia, unspecified, E55.9 - Vitamin D deficiency, unspecified, E78.00 - Pure hypercholesterolemia, unspecified Free T4 (Free Thyroxine) 3 Months D64.9 - Anemia, unspecified, E55.9 - Vitamin D deficiency, unspecified, E78.00 - Pure hypercholesterolemia, unspecified Medications: New atorvastatin (Lipitor) 10 mg PO BEDTIME 90 tabs 3RF
--- OUTSIDE RECORDS SUMMARY | 2025-01-14 13:50 | XMS_ITS | Clinical Summary ---
Author Organization [employer] Address [address] [place] [address] [address] [place] [address] Care Team Providers Care Mannequin Molder Name Role Phone Unavailable Primary Care Provider [...] Relevant to Health Maintenance Insurance - [facility]
--- OUTSIDE RECORDS SUMMARY | 2025-01-14 13:50 | XMS_ITS | Encounter Summary ---
Author Organization [employer] Address [address] [facility] [address] [place] [address] Care Team Providers Care Paralegals Name Role Phone Unavailable Primary Care Provider Unavailabl e Encounter Details Date Type Department Care Team (Latest Contact Info) Description 04/04/2018 Abstract [facility] CONVERSIONS Dental, Provider, DDS Social History [...]
--- OUTSIDE RECORDS SUMMARY | 2025-01-14 13:50 | XMS_ITS | Encounter Summary ---
Author Organization [employer] Address [address] [facility] [address] [place] [address] Care Team Providers Care Dock Operator Name Role Phone Unavailable Primary Care Provider Unavailabl e Encounter Details Date Type Department Care Team (Latest Contact Info) Description 06/14/2020 Abstract [facility] CONVERSIONS Dental, Provider, DDS Social [...]
--- OUTSIDE RECORDS SUMMARY | 2025-01-14 13:50 | XMS_ITS | Encounter Summary ---
Author Organization [employer] Address [address] [facility] [address] [place] [address] Care Team Providers Care Training Project Manager Name Role Phone Unavailable Primary Care Provider Unavailabl e Encounter Details Date Type Department Care Team (Late st Contact Info) Description 09/26/2022 Abstract [facility] ADULT DENTAL [address] [place] [address] Monica Pizano, DDS [address] [place], [place] [id number] Social History Tobacco Use Types Packs/Day Years [...]
--- OUTSIDE RECORDS SUMMARY | 2025-01-14 13:50 | XMS_ITS | Encounter Summary ---
Author Organization [employer] Address [address] [facility] [address] [place] [address] Care Team Providers Care Teacher Assistant Name Role Phone Unavailable Primary Care Provider Unavailabl e Encounter Details Date Type Department Care Team (Latest Contact Info) Description 04/07/2019 Abstract [facility] CONVERSIONS Dental, Provider, DDS Social History [...]
--- OUTSIDE RECORDS SUMMARY | 2025-01-14 13:50 | XMS_ITS | Encounter Summary ---
Author Organization [employer] Address [address] [facility] [address] [place] [address] Care Team Providers Care Implementation Project Manager Name Role Phone Unavailable Primary Care Provider Unavailabl e Encounter Details Date Type Department Care Team (Latest Contact Info) Description 11/09/2021 Abstract [facility] CONVERSIONS Dental, Provider, DDS Social History Tobacco [...]
== END 2025-01-14 12:12 | disposition home or self-care (01) ==
LOC: HO.HMCH 11:27
DX: E78.00 Pure hypercholesterolemia, unspecified (principal); Z98.2 Presence of cerebrospinal fluid drainage device; E55.9 Vitamin D deficiency, unspecified; E89.0 Postprocedural hypothyroidism; H91.92 Unspecified hearing loss, left ear; D64.9 Anemia, unspecified

== ENCOUNTER → 2025-01-14 11:26 | Outpatient (BNVA) | payer OTHER, SELFPAY | DX: E89.0 Postprocedural hypothyroidism (principal); E78.00 Pure hypercholesterolemia, unspecified; E55.9 Vitamin D deficiency, unspecified; H91.92 Unspecified hearing loss, left ear; D64.9 Anemia, unspecified; Z98.2 Presence of cerebrospinal fluid drainage device | CPT/HCPCS: 96127; 99212 ==